=== PATIENT | male | born 1950 | race Caucasian/White ===

== ENCOUNTER 2017-02-12 11:37 | Emergency (ER) | payer OTHER ==
[~2017-02-12] VITALS: Ht 182.9 cm; Wt 121.9 kg
[~2017-02-12 11:37] MED LIST: ADVAIR 250-501 EACH; ADVAIR 250/501 DISK IH; ADVAIR 500/501 DISK IH; ALEVE220 M1 PO; ARTHROTEC 501 TABLET PO; ASPIRIN325 MG PO; ASPIRIN81 M1 PO; Ascorbic Acid,Ester- PO; BYSTOLIC5 MG PO; COZAAR25 MG PO; COZAAR50 MG PO; Cozaar PO; DIGOXIN250 MCG PO; DIOVAN HCT 11 TABLET PO; DIOVAN HCT 1601 EACH PO; DIOVAN160 MG PO; DOCUSATE SODIU100 MG PO; DUONEB 2.5-0.5 M3 ML IH; ECOTRIN325 MG PO; ECPIRIN325 M1 PO; ENDOCET 5-3251 EACH PO; Ecotrin PO; FERROUS SULFAT325 MG PO; FUROSEMIDE40 MG PO; HYDRODIURIL,O12.5 M2 PO; LASIX40 MG PO; LEVAQUIN500 MG PO; LEVOFLOXACIN750 MG PO; LEXAPRO10 MG PO; LIORESAL10 MG PO; LOPRESSOR100 M1 PO; LOPRESSOR25 MG PO; LOPRESSOR50 MG PO; LYRICA100 MG PO; LYRICA200 MG PO; LYRICA50 MG PO; Lasix PO; Lioresal PO; Lopressor PO; MIRALAX17 GM PO; MOTRIN600 M1 PO; MOTRIN800 MG PO; MYSOLINE50 MG PO; Miralax, Glycolax PO; Mysoline PO; NEXIUM20 MG PO; NORVASC5 MG PO; OMEPRAZOLE40 M1 PO; PANTOPRAZOLE SO40 MG PO; PERCOCET 10/1 TABLET PO; PERCOCET 7.51 TABLET PO; PLAVIX75 MG PO; PRADAXA150 MG PO; PRAVACHOL80 MG PO; PREDNISONE10 MG PO; PREDNISONE5 MG PO; PROMETHAZI6.25 MG/5 PO; PROTONIX40 MG PO; PROVENTIL,2.5 MG/3 M IH; Plavix PO; Pravachol PO; REQUIP0.5 MG PO; Requip PO; SPIRIVA1 INHALATI; SYMBICORT60 INHALAT IH; TRAMADOL HCL50 MG PO; ULTRAM50 MG PO; VITAMIN C1000 MG PO; VITAMIN D22000 UNIT PO; ZITHROMAX250 MG PO; [UNRECOGNIZED DRUG - REMARK]
[2017-02-12 11:57] LABS: POINT-OF-CARE METER ID UU13113778
[2017-02-12 12:07] LABS: HEMATOCRIT 44.7 % (38.0-50.0); MCHC 33.8 G/DL (30.0-36.0); MCV 79.8 FL (86-99); MEAN PLAT.VOLUME 10.6 uM^3 (9.0-12.4); PLATELET COUNT 255 K/uL (156-360); RBC DIS.WIDTH-CV 14.5 % (11.8-14.6); RBC DIS.WIDTH-SD 41.7 % (39-53); WHITE BLOOD COUNT 9.2 K/uL (4.1-10.2)
[2017-02-12 12:35] LABS: CHLORIDE 95 mEq/L (99-109); POTASSIUM 4.2 mEq/L (3.7-5.4); SODIUM 134 mEq/L (136-147)
[2017-02-12 12:38] LABS: ANION GAP 12 MEQ/L (2-14)
[2017-02-12 12:39] LABS: TOTAL BILIRUBIN 0.8 mg/dL (0.0-1.0)
[2017-02-12 12:41] LABS: GFR ESTIMATE (CALCULATED) 59 mL/min/
[2017-02-12 12:54] LABS: GLUCOSE 469 mg/dL (70-99)
[2017-02-12 12:57] LABS: ALKALINE PHOSPHATASE 137 IU/L (3-129)
[2017-02-12 12:59] LABS: UREA NITROGEN (BUN) 17 mg/dL (9-23)
[2017-02-12 13:23] LABS: ADD MIUA? YES; BILIRUBIN NEGATIVE; BLOOD SMALL; COLOR YELLOW ((YELLOW)); GLUCOSE (STRIP) >=500; KETONES 5; LEUKOCYTES NEGATIVE; NITRITE NEGATIVE; PROTEIN (STRIP) 30; SPECIFIC GRAVITY 1.027 (1.000-1.030); UROBILINOGEN 0.2 MG/DL (0.2-1.0)
[2017-02-12 13:29] LABS: BACTERIA RARE /HPF; CALCIUM OXALATE CRYSTALS 1+ /HPF; EPITHELIAL CELLS RARE /HPF; GRANULAR CASTS TNTC /LPF; HYALINE CASTS 30-40 /LPF; MUCUS 1+ /LPF; RED BLOOD CELLS 0-5 /HPF (0-5); UCUL ADDED? YES
[2017-02-12 13:43] LABS: Estimated Average Glucose 260 mg/dL (70-123)
[2017-02-12 13:48] LABS: HEMOGLOBIN A1c (GLYCOHEMOGLOB) 10.7 % HGB (Below 5.7)
[2017-02-12 15:12] LABS: POINT-OF-CARE METER ID UU13113800
[2017-02-12 15:54] LABS: POINT-OF-CARE METER ID UU13113800
[2017-02-12] MEDS ORDERED: GLUCOPHAGE1000 MG PO (16:35)
[2017-02-12] MEDS ORDERED: CIPRO500 MG PO (16:35)
[2017-02-12 16:40] VITALS: BP 126/86
== END 2017-02-12 17:29 | disposition home or self-care (01) ==
LOC: EME 11:37
PROVIDERS: Nurse Practitioner Family; Physician Assistant
DX: E11.65 Type 2 diabetes mellitus with hyperglycemia (principal); N39.0 Urinary tract infection, site not specified; G89.29 Other chronic pain; I10 Essential (primary) hypertension; J44.9 Chronic obstructive pulmonary disease, unspecified; Z95.1 Presence of aortocoronary bypass graft; Z79.82 Long term (current) use of aspirin; Z79.52 Long term (current) use of systemic steroids; Z87.891 Personal history of nicotine dependence
CPT/HCPCS: 80053; 81003; 82010; 82948; 83036; 85027; 87086; 99281; 99284; J7030

== ENCOUNTER 2017-06-07 00:28 | Inpatient (IN) | payer OTHER ==
[~2017-06-07] VITALS: Ht 182.9 cm; Wt 121.3 kg
[~2017-06-07 00:28] MED LIST changes: +CIPRO500 MG PO; +GLUCOPHAGE1000 MG PO
[2017-06-07 01:07] LABS: HEMATOCRIT 39.4 % (38.0-50.0); MCV 84.9 FL (86-99); MEAN PLAT.VOLUME 9.9 uM^3 (9.0-12.4); PLATELET COUNT 210 K/uL (156-360); RBC DIS.WIDTH-CV 14.2 % (11.8-14.6); RBC DIS.WIDTH-SD 44.1 % (39-53); RED BLOOD COUNT 4.64 M/uL (4.00-5.50)
[2017-06-07 01:17] LABS: CHLORIDE 108 mEq/L (99-109); SODIUM 144 mEq/L (136-147)
[2017-06-07 01:18] LABS: GLUCOSE 117 mg/dL (70-99)
[2017-06-07 01:20] LABS: ANION GAP 10 MEQ/L (2-14)
[2017-06-07 01:22] LABS: GFR ESTIMATE (CALCULATED) 28 mL/min/ (58.99-99999)
[2017-06-07 01:23] LABS: UREA NITROGEN (BUN) 38 mg/dL (9-23)
[2017-06-07 01:28] LABS: TROP-I INTERPRETATION NEGATIVE; TROPONIN-I < 0.01 ng/mL (0.0-0.30)
[2017-06-07 02:47] LABS: ADD MIUA? YES; BILIRUBIN NEGATIVE; BLOOD LARGE; COLOR YELLOW ((YELLOW)); GLUCOSE (STRIP) >=500; KETONES NEGATIVE; LEUKOCYTES NEGATIVE; NITRITE NEGATIVE; PROTEIN (STRIP) 100; SPECIFIC GRAVITY 1.014 (1.000-1.030); UROBILINOGEN 0.2 MG/DL (0.2-1.0)
[2017-06-07 03:17] LABS: RED BLOOD CELLS TNTC /HPF (0-5)
[2017-06-07 03:18] LABS: BACTERIA 1+ /HPF; EPITHELIAL CELLS RARE /HPF; MUCUS NONE SEEN /LPF; UCUL ADDED? YES
[2017-06-07] MEDS ORDERED: FARXIGA10 MG PO (08:40)
[2017-06-07] MEDS ORDERED: MORPHINE SULFAT15 M1 PO (08:40)
[2017-06-07] MEDS ORDERED: ATENOLOL25 MG PO (08:40)
[2017-06-07] MEDS ORDERED: DUONEB 2.5-0.5 M3 ML AEROSOL (08:46)
[2017-06-07 16:03] VITALS: BP 153/68
[2017-06-07 16:12] LABS: TROP-I INTERPRETATION NEGATIVE; TROPONIN-I < 0.01 ng/mL (0.0-0.30)
[2017-06-07 19:13] VITALS: BP 161/72
[2017-06-07 21:50] LABS: POINT-OF-CARE METER ID UU13113698
[2017-06-07 21:58] VITALS: BP 130/61
[2017-06-07 23:49] VITALS: BP 146/61
[2017-06-08 00:02] LABS: TROP-I INTERPRETATION NEGATIVE; TROPONIN-I < 0.01 ng/mL (0.0-0.30)
[2017-06-08 04:30] VITALS: BP 135/63
[2017-06-08 05:28] LABS: UR CREATININE CONCENTRATION 85.9 MG/DL
[2017-06-08 06:05] LABS: C3 COMPLEMENT 137 MG/DL (58-170); C4 COMPLEMENT 31 MG/DL (10-40)
[2017-06-08 06:06] LABS: ANION GAP 10 MEQ/L (2-14); CHLORIDE 105 MEQ/L (99-109); GFR ESTIMATE (CALCULATED) 30 mL/min/ (58.99-99999); GLUCOSE 98 mg/dL (70-99); POTASSIUM 3.8 MEQ/L (3.7-5.4); SAMPLE HEMOLYSIS CHECK 0; SAMPLE ICTERIC CHECK 0; SAMPLE LIPEMIA CHECK 0; SODIUM 141 MEQ/L (136-147); UREA NITROGEN (BUN) 37 mg/dL (9-23)
[2017-06-08 09:02] VITALS: BP 168/70
[2017-06-08 11:46] VITALS: BP 163/71
[2017-06-08 14:16] LABS: HBSG INDEX 0.18
[2017-06-08 14:18] LABS: ANTI-HEPATITIS A VIRUS (IGM) Nonreactive; HAV INDEX 0.18; HPCA INDEX 0.19
[2017-06-08 14:19] LABS: ANTI-HEPATITIS B CORE (IGM) Nonreactive; HBC IgM INDEX 0.07
[2017-06-08 16:51] VITALS: BP 167/78
[2017-06-08 19:41] VITALS: BP 156/70
[2017-06-08 23:30] VITALS: BP 176/77
[2017-06-09 04:20] VITALS: BP 144/67
[2017-06-09 05:07] LABS: BASOPHIL COUNT 0.1 K/uL (0-0.1); EOSINOPHIL (%) 2.5 % (0-5); EOSINOPHIL COUNT 0.2 K/uL (0-0.3); HEMATOCRIT 34.5 % (38.0-50.0); IMMATURE GRANULOCYTE (%) 0.3 % (0.0-0.7); INSTRUMENT ABS NEUTROPHIL CT 5.3 K/uL; LYMPHOCYTE COUNT 1.5 K/uL (1.0-2.8); MCH 27.4 PG (29.0-34.0); MCHC 32.8 G/DL (30.0-36.0); MCV 83.7 FL (86-99); MEAN PLAT.VOLUME 10.3 uM^3 (9.0-12.4); MONOCYTE (%) 8.7 % (3-12); MONOCYTE COUNT 0.7 K/uL (0-0.8); NEUTROPHIL (%) 68.8 % (45-76); NEUTROPHIL COUNT 5.3 K/uL (1.8-6.4); PLATELET COUNT 195 K/uL (156-360); RBC DIS.WIDTH-CV 14.6 % (11.8-14.6); RBC DIS.WIDTH-SD 44.6 % (39-53); RED BLOOD COUNT 4.12 M/uL (4.00-5.50); WHITE BLOOD COUNT 7.7 K/uL (4.1-10.2)
[2017-06-09 05:15] LABS: CHLORIDE 106 mEq/L (99-109); SODIUM 141 mEq/L (136-147)
[2017-06-09 05:16] LABS: MAGNESIUM 2.1 mg/dL (1.3-2.7)
[2017-06-09 05:17] LABS: GLUCOSE 110 mg/dL (70-99)
[2017-06-09 05:18] LABS: ANION GAP 11 MEQ/L (2-14)
[2017-06-09 05:21] LABS: GFR ESTIMATE (CALCULATED) 26 mL/min/ (58.99-99999)
[2017-06-09 05:22] LABS: UREA NITROGEN (BUN) 38 mg/dL (9-23)
[2017-06-09 06:55] VITALS: BP 143/67
[2017-06-09 11:10] VITALS: BP 177/70
[2017-06-09 15:29] LABS: UR CREATININE CONCENTRATION 75.7 MG/DL
[2017-06-09 15:58] VITALS: BP 174/75
[2017-06-09 20:10] VITALS: BP 149/67
[2017-06-10 00:01] VITALS: BP 162/72
[2017-06-10 04:48] VITALS: BP 167/86
[2017-06-10 06:38] LABS: ANION GAP 11 MEQ/L (2-14); CHLORIDE 107 MEQ/L (99-109); GFR ESTIMATE (CALCULATED) 26 mL/min/ (58.99-99999); GLUCOSE 103 mg/dL (70-99); POTASSIUM 4.2 MEQ/L (3.7-5.4); SAMPLE HEMOLYSIS CHECK 0; SAMPLE ICTERIC CHECK 0; SAMPLE LIPEMIA CHECK 0; SODIUM 143 MEQ/L (136-147); UREA NITROGEN (BUN) 41 mg/dL (9-23)
[2017-06-10 07:50] VITALS: BP 153/70
[2017-06-10 10:14] LABS: CREATINE KINASE 41 IU/L (1-294)
[2017-06-10 11:43] VITALS: BP 179/82
[2017-06-10 13:02] LABS: TROP-I INTERPRETATION NEGATIVE; TROPONIN-I < 0.01 ng/mL (0.0-0.30)
[2017-06-10 13:04] LABS: Neutrophil Cytoplasmic Aby Negative (Negative)
[2017-06-10 17:15] LABS: POINT-OF-CARE METER ID UU14314088
[2017-06-10 17:19] VITALS: BP 151/71
[2017-06-10 19:33] VITALS: BP 146/65
[2017-06-10 21:09] LABS: POINT-OF-CARE METER ID UU13113781
[2017-06-11 00:23] VITALS: BP 141/67
[2017-06-11 04:56] VITALS: BP 146/68
[2017-06-11 06:22] LABS: POINT-OF-CARE METER ID UU13113725
[2017-06-11 07:58] VITALS: BP 144/65
[2017-06-11 08:41] LABS: EOSINOPHIL (%) 2.4 % (0-5); EOSINOPHIL COUNT 0.2 K/uL (0-0.3); HEMATOCRIT 35.7 % (38.0-50.0); IMMATURE GRANULOCYTE (%) 0.3 % (0.0-0.7); INSTRUMENT ABS NEUTROPHIL CT 4.7 K/uL; LYMPHOCYTE COUNT 1.2 K/uL (1.0-2.8); MCH 27.6 PG (29.0-34.0); MCHC 32.5 G/DL (30.0-36.0); MEAN PLAT.VOLUME 10.5 uM^3 (9.0-12.4); MONOCYTE (%) 9.1 % (3-12); MONOCYTE COUNT 0.6 K/uL (0-0.8); NEUTROPHIL (%) 70.6 % (45-76); NEUTROPHIL COUNT 4.7 K/uL (1.8-6.4); PLATELET COUNT 193 K/uL (156-360); RBC DIS.WIDTH-CV 14.9 % (11.8-14.6); RBC DIS.WIDTH-SD 45.9 % (39-53); WHITE BLOOD COUNT 6.7 K/uL (4.1-10.2)
[2017-06-11 08:49] LABS: INTER. NORMALIZED RATIO 1.2; PROTHROMBIN TIME 13.6 SEC (10.2-12.9)
[2017-06-11 08:51] LABS: PTT 32.9 SEC (25-37)
[2017-06-11 09:22] LABS: ANION GAP 9 MEQ/L (2-14); CHLORIDE 107 MEQ/L (99-109); GFR ESTIMATE (CALCULATED) 26 mL/min/ (58.99-99999); GLOBULINS 2.7 G/DL (2.3-3.5); GLUCOSE 103 mg/dL (70-99); POTASSIUM 4.5 MEQ/L (3.7-5.4); SAMPLE HEMOLYSIS CHECK 0; SAMPLE ICTERIC CHECK 0; SAMPLE LIPEMIA CHECK 0; SODIUM 142 MEQ/L (136-147); UREA NITROGEN (BUN) 39 mg/dL (9-23)
[2017-06-11 11:55] LABS: POINT-OF-CARE METER ID UU13113725
[2017-06-11 15:21] VITALS: BP 141/64
[2017-06-11 16:35] LABS: POINT-OF-CARE METER ID UU13113725
[2017-06-11 21:07] LABS: POINT-OF-CARE METER ID UU13113774
[2017-06-11 22:44] VITALS: BP 156/69
[2017-06-12 06:24] LABS: POINT-OF-CARE METER ID UU13113725
[2017-06-12 07:33] VITALS: BP 183/83
[2017-06-12 11:25] LABS: POINT-OF-CARE METER ID UU13113725
[2017-06-12 16:16] VITALS: BP 171/75
[2017-06-12 16:19] LABS: POINT-OF-CARE METER ID UU13113725
[2017-06-12 20:59] LABS: POINT-OF-CARE METER ID UU13113725
[2017-06-13 00:39] VITALS: BP 135/66
[2017-06-13 06:31] LABS: POINT-OF-CARE METER ID UU13113774
[2017-06-13 07:04] LABS: EOSINOPHIL (%) 0 % (0-5); HEMATOCRIT 34.3 % (38.0-50.0); IMMATURE GRANULOCYTE COUNT 0.1 K/uL; INSTRUMENT ABS NEUTROPHIL CT 8.3 K/uL; LYMPHOCYTE COUNT 0.7 K/uL (1.0-2.8); MCHC 33.2 G/DL (30.0-36.0); MCV 84.3 FL (86-99); MEAN PLAT.VOLUME 10.5 uM^3 (9.0-12.4); MONOCYTE (%) 5.5 % (3-12); MONOCYTE COUNT 0.5 K/uL (0-0.8); NEUTROPHIL (%) 86.2 % (45-76); NEUTROPHIL COUNT 8.3 K/uL (1.8-6.4); PLATELET COUNT 221 K/uL (156-360); RBC DIS.WIDTH-SD 46.2 % (39-53); RED BLOOD COUNT 4.07 M/uL (4.00-5.50); WHITE BLOOD COUNT 9.6 K/uL (4.1-10.2)
[2017-06-13 07:10] LABS: ANION GAP 11 MEQ/L (2-14); CHLORIDE 109 MEQ/L (99-109); GFR ESTIMATE (CALCULATED) 22 mL/min/ (58.99-99999); POTASSIUM 4.5 MEQ/L (3.7-5.4); SAMPLE HEMOLYSIS CHECK 0; SAMPLE ICTERIC CHECK 0; SAMPLE LIPEMIA CHECK 0; SODIUM 142 MEQ/L (136-147)
[2017-06-13 07:14] LABS: GLUCOSE 164 mg/dL (70-99); UREA NITROGEN (BUN) 71 mg/dL (9-23)
[2017-06-13 07:43] VITALS: BP 151/70
[2017-06-13 12:12] LABS: POINT-OF-CARE METER ID UU13113774
[2017-06-13 16:04] LABS: POINT-OF-CARE METER ID UU13113725
[2017-06-13 16:37] VITALS: BP 166/76
[2017-06-13 21:33] LABS: POINT-OF-CARE METER ID UU13113725
[2017-06-14] VITALS: BP 177/74
[2017-06-14 03:00] VITALS: BP 160/72
[2017-06-14 06:15] LABS: POINT-OF-CARE METER ID UU13113725
[2017-06-14 06:25] LABS: EOSINOPHIL (%) 0 % (0-5); IMMATURE GRANULOCYTE (%) 1.1 % (0.0-0.7); IMMATURE GRANULOCYTE COUNT 0.1 K/uL; INSTRUMENT ABS NEUTROPHIL CT 7.4 K/uL; LYMPHOCYTE COUNT 0.7 K/uL (1.0-2.8); MCH 26.9 PG (29.0-34.0); MCHC 31.7 G/DL (30.0-36.0); MCV 84.9 FL (86-99); MEAN PLAT.VOLUME 10.6 uM^3 (9.0-12.4); MONOCYTE (%) 6.4 % (3-12); MONOCYTE COUNT 0.6 K/uL (0-0.8); NEUTROPHIL (%) 84.3 % (45-76); NEUTROPHIL COUNT 7.4 K/uL (1.8-6.4); PLATELET COUNT 215 K/uL (156-360); RBC DIS.WIDTH-CV 14.9 % (11.8-14.6); RBC DIS.WIDTH-SD 46.2 % (39-53); RED BLOOD COUNT 4.24 M/uL (4.00-5.50); WHITE BLOOD COUNT 8.8 K/uL (4.1-10.2)
[2017-06-14 07:41] LABS: ANION GAP 11 MEQ/L (2-14); CHLORIDE 109 MEQ/L (99-109); GFR ESTIMATE (CALCULATED) 21 mL/min/ (58.99-99999); GLUCOSE 150 mg/dL (70-99); POTASSIUM 4.8 MEQ/L (3.7-5.4); SAMPLE HEMOLYSIS CHECK 0; SAMPLE ICTERIC CHECK 0; SAMPLE LIPEMIA CHECK 0; SODIUM 141 MEQ/L (136-147); UREA NITROGEN (BUN) 85 mg/dL (9-23)
[2017-06-14 08:05] VITALS: BP 164/73
[2017-06-14 11:19] LABS: ALBUMIN 3.07 G/DL (3.6-4.9); ALBUMIN PERCENT 50.4 % (49.3-67.1); ALPHA-1 PERCENT 6.6 % (2.1-5.5); ALPHA-2 GLOBULIN 0.71 G/DL (0.45-0.85); ALPHA-2 PERCENT 11.7 % (6.2-11.6); BETA PERCENT 14.4 % (8.9-15.8); GAMMA PERCENT 16.9 % (8.6-18.6); INTERPRETATION: Normal study.; SERUM GEL NO. capi-28
[2017-06-14 11:36] LABS: POINT-OF-CARE METER ID UU13113774
[2017-06-14 15:47] VITALS: BP 151/74
[2017-06-14 16:34] LABS: POINT-OF-CARE METER ID UU13113774
[2017-06-14 21:18] LABS: POINT-OF-CARE METER ID UU13113725
[2017-06-14 23:09] VITALS: BP 120/50
[2017-06-15 00:02] VITALS: BP 181/84
[2017-06-15 05:54] LABS: POINT-OF-CARE METER ID UU13113725
[2017-06-15 07:05] LABS: EOSINOPHIL (%) 0.1 % (0-5); HEMATOCRIT 37.6 % (38.0-50.0); IMMATURE GRANULOCYTE COUNT 0.1 K/uL; LYMPHOCYTE COUNT 1.3 K/uL (1.0-2.8); MCH 26.9 PG (29.0-34.0); MCHC 31.6 G/DL (30.0-36.0); MCV 85.1 FL (86-99); MEAN PLAT.VOLUME 10.6 uM^3 (9.0-12.4); MONOCYTE (%) 12.1 % (3-12); NEUTROPHIL (%) 71.1 % (45-76); PLATELET COUNT 199 K/uL (156-360); RBC DIS.WIDTH-SD 46.5 % (39-53); RED BLOOD COUNT 4.42 M/uL (4.00-5.50); WHITE BLOOD COUNT 8.4 K/uL (4.1-10.2)
[2017-06-15 07:12] LABS: ANION GAP 10 MEQ/L (2-14); CHLORIDE 110 MEQ/L (99-109); GFR ESTIMATE (CALCULATED) 24 mL/min/ (58.99-99999); POTASSIUM 4.4 MEQ/L (3.7-5.4); SAMPLE HEMOLYSIS CHECK 0; SAMPLE ICTERIC CHECK 0; SAMPLE LIPEMIA CHECK 0; SODIUM 143 MEQ/L (136-147); UREA NITROGEN (BUN) 83 mg/dL (9-23)
[2017-06-15 07:13] LABS: GLUCOSE 111 mg/dL (70-99)
[2017-06-15 08:22] VITALS: BP 141/65
[2017-06-15] MEDS ORDERED: AMOX TR-K CLV1 EAC3 PO (09:06)
[2017-06-15] MEDS ORDERED: ASPIR-LOW81 MG PO (09:08)
[2017-06-15] MEDS ORDERED: ACETAMINOPHEN-1 EAC1 PO (09:11)
[2017-06-15] MEDS ORDERED: NOVOLOG PE100 UNITS/ SC (09:11)
[2017-06-15 11:18] LABS: POINT-OF-CARE METER ID UU13113725
== END 2017-06-15 12:22 | disposition home or self-care (01) | DRG 682 ==
LOC: EME 00:28 → 5EAST 03:45 → 4EAST 03:45 → EDOF 03:45 → ENRESERV 04:04 → 4EAST 15:25 → ENRESERV 06-10 22:13 → 5EAST 06-10 22:43 → ENPENDDIS 06-15 → 5EAST 06-15 12:22
PROVIDERS: Emergency Medicine; Family Medicine; Internal Medicine Cardiovascular Disease; Internal Medicine Nephrology
DX: N17.9 Acute kidney failure, unspecified (principal); J44.1 Chronic obstructive pulmonary disease with (acute) exacerbation; I48.91 Unspecified atrial fibrillation; J90 Pleural effusion, not elsewhere classified; N40.0 Benign prostatic hyperplasia without lower urinary tract symptoms; G25.81 Restless legs syndrome; R91.8 Other nonspecific abnormal finding of lung field; J44.0 Chronic obstructive pulmonary disease with (acute) lower respiratory infection; R73.03 Prediabetes; J18.9 Pneumonia, unspecified organism; I25.10 Atherosclerotic heart disease of native coronary artery without angina pectoris; F41.9 Anxiety disorder, unspecified; M06.9 Rheumatoid arthritis, unspecified; R31.0 Gross hematuria; E66.9 Obesity, unspecified; I10 Essential (primary) hypertension; I25.810 Atherosclerosis of coronary artery bypass graft(s) without angina pectoris; E78.5 Hyperlipidemia, unspecified; G89.4 Chronic pain syndrome; M54.9 Dorsalgia, unspecified; I00 Rheumatic fever without heart involvement; E11.42 Type 2 diabetes mellitus with diabetic polyneuropathy; Z87.891 Personal history of nicotine dependence; Z82.49 Family history of ischemic heart disease and other diseases of the circulatory system; Z91.19 Patient's noncompliance with other medical treatment and regimen; Z91.048 Other nonmedicinal substance allergy status; Z79.4 Long term (current) use of insulin; Z79.82 Long term (current) use of aspirin; Z95.1 Presence of aortocoronary bypass graft; Z68.35 Body mass index [BMI] 35.0-35.9, adult
CPT/HCPCS: 70450; 71020; 71250; 74176; 76770; 77012; 80048; 80069; 80074; 81003; 81050; 82043; 82550; 82570; 82948; 83520 90; 83735; 83883 90; 84156; 84165; 84300; 84484; 84550; 85025; 85027; 85610; 85651; 85730; 86021 90; 86038; 86160; 87086; 88305; 88313 90; 88346 90; 88348 90; 89190; 90686; 93005; 93306; 94640; 94640 76; 94799; 99202; 99281; 99284; J0696; J1644; J1650; J1815; J2930; J7030; J7040; J7512

== ENCOUNTER 2017-06-18 13:15 | Inpatient (IN) | payer OTHER ==
[~2017-06-18] VITALS: Ht 185.4 cm; Wt 118.1 kg
[~2017-06-18 13:15] MED LIST changes: +ACETAMINOPHEN-1 EAC1 PO; +AMOX TR-K CLV1 EAC3 PO; +ASPIR-LOW81 MG PO; +ATENOLOL25 MG PO; +DUONEB 2.5-0.5 M3 ML AEROSOL; +FARXIGA10 MG PO; +MORPHINE SULFAT15 M1 PO; +NOVOLOG PE100 UNITS/ SC
[2017-06-18 14:37] LABS: HEMATOCRIT 43.3 % (38.0-50.0); MCH 27.5 PG (29.0-34.0); MCHC 32.6 G/DL (30.0-36.0); MCV 84.4 FL (86-99); MEAN PLAT.VOLUME 10.1 uM^3 (9.0-12.4); RBC DIS.WIDTH-CV 14.7 % (11.8-14.6); RED BLOOD COUNT 5.13 M/uL (4.00-5.50); WHITE BLOOD COUNT 17.2 K/uL (4.1-10.2)
[2017-06-18 14:38] LABS: PLATELET COUNT 280 K/uL (156-360)
[2017-06-18 15:05] LABS: ANION GAP 10 MEQ/L (2-14); CHLORIDE 112 MEQ/L (99-109); SAMPLE HEMOLYSIS CHECK 0; SAMPLE ICTERIC CHECK 0; SAMPLE LIPEMIA CHECK 0; SODIUM 144 MEQ/L (136-147)
[2017-06-18 15:12] LABS: GFR ESTIMATE (CALCULATED) 29 mL/min/ (58.99-99999); GLUCOSE 101 mg/dL (70-99); UREA NITROGEN (BUN) 62 mg/dL (9-23)
[2017-06-18] MEDS ORDERED: NOVOLOG PE100 UNITS/ SC (16:30)
[2017-06-18 17:28] LABS: ADD MIUA? YES; BILIRUBIN NEGATIVE; BLOOD LARGE; COLOR YELLOW ((YELLOW)); GLUCOSE (STRIP) NEGATIVE; KETONES NEGATIVE; LEUKOCYTES NEGATIVE; NITRITE NEGATIVE; PROTEIN (STRIP) 100; SPECIFIC GRAVITY 1.016 (1.000-1.030); UROBILINOGEN 0.2 MG/DL (0.2-1.0)
[2017-06-18 17:44] LABS: CASTS NONE SEEN /LPF; EPITHELIAL CELLS NONE SEEN /HPF; MUCUS NONE SEEN /LPF
[2017-06-18 17:45] LABS: BACTERIA RARE /HPF; RED BLOOD CELLS TNTC /HPF (0-5); UCUL ADDED? YES
[2017-06-18 20:35] VITALS: BP 140/62
[2017-06-18 22:21] LABS: POINT-OF-CARE METER ID UU14302474; POINT-OF-CARE USER ID 608261329
[2017-06-18 22:40] VITALS: BP 153/65
[2017-06-19 05:47] LABS: POINT-OF-CARE METER ID UU14302474
[2017-06-19 07:37] VITALS: BP 188/80
[2017-06-19 10:05] VITALS: BP 158/70
[2017-06-19 12:01] LABS: POINT-OF-CARE METER ID UU14302474
[2017-06-19 12:34] LABS: ANION GAP 7 MEQ/L (2-14); CHLORIDE 112 MEQ/L (99-109); GFR ESTIMATE (CALCULATED) 29 mL/min/ (58.99-99999); GLUCOSE 100 mg/dL (70-99); SAMPLE HEMOLYSIS CHECK 0; SAMPLE ICTERIC CHECK 0; SAMPLE LIPEMIA CHECK 0; SODIUM 144 MEQ/L (136-147); UREA NITROGEN (BUN) 53 mg/dL (9-23)
[2017-06-20 07:10] LABS: Estimated Average Glucose 120 mg/dL (70-123)
[2017-06-20 07:24] LABS: HEMOGLOBIN A1c (GLYCOHEMOGLOB) 5.8 % HGB (Below 5.7)
== END 2017-06-19 15:41 | disposition home or self-care (01) | DRG 682 ==
LOC: EME 13:15 → EDOF 18:17 → ENRESERV 18:22 → 5EAST 20:27
PROVIDERS: Family Medicine
DX: N17.9 Acute kidney failure, unspecified (principal); J86.9 Pyothorax without fistula; I12.9 Hypertensive chronic kidney disease with stage 1 through stage 4 chronic kidney disease, or unspecified chronic kidney disease; N18.3 Chronic kidney disease, stage 3 (moderate); J44.9 Chronic obstructive pulmonary disease, unspecified; E66.9 Obesity, unspecified; Z68.34 Body mass index [BMI] 34.0-34.9, adult; M06.9 Rheumatoid arthritis, unspecified; E86.0 Dehydration; G89.29 Other chronic pain; I25.10 Atherosclerotic heart disease of native coronary artery without angina pectoris; Z95.1 Presence of aortocoronary bypass graft; Z87.891 Personal history of nicotine dependence; E78.5 Hyperlipidemia, unspecified; E11.22 Type 2 diabetes mellitus with diabetic chronic kidney disease; E11.42 Type 2 diabetes mellitus with diabetic polyneuropathy; J98.11 Atelectasis
CPT/HCPCS: 36415; 80048; 81003; 82948; 83036; 85027; 86021 90; 86060 90; 87086; 87493; 94640; 94640 76; 99202; 99281; 99284; J1815; J7030

== ENCOUNTER 2017-07-30 04:49 | Inpatient (IN) | payer OTHER ==
[~2017-07-30] VITALS: Ht 182.9 cm; Wt 100.0 kg
[2017-07-30 05:56] LABS: BASOPHIL (%) 0.3 % (0-1); EOSINOPHIL (%) 0.3 % (0-5); HEMATOCRIT 22.5 % (38.0-50.0); HEMOGLOBIN 7.7 G/DL (12.5-16.6); IMMATURE GRANULOCYTE (%) 2.8 % (0.0-0.7); LYMPHOCYTE COUNT 0.4 K/uL (1.0-2.8); MCH 28.2 PG (29.0-34.0); MCHC 34.2 G/DL (30.0-36.0); MCV 82.4 FL (86-99); MONOCYTE (%) 6.8 % (3-12); MONOCYTE COUNT 0.2 K/uL (0-0.8); NEUTROPHIL (%) 78.8 % (45-76); NEUTROPHIL COUNT 2.8 K/uL (1.8-6.4); NRBC (%) 1.1 /100 WBC (0-0); PLATELET COUNT 104 K/uL (156-360); RBC DIS.WIDTH-CV 17.7 % (11.8-14.6); RBC DIS.WIDTH-SD 43.2 % (39-53); WHITE BLOOD COUNT 3.5 K/uL (4.1-10.2)
[2017-07-30 05:57] LABS: RED BLOOD COUNT 2.73 M/uL (4.00-5.50)
[2017-07-30 06:09] LABS: ALBUMIN 3.2 g/dL (3.2-4.8); CHLORIDE 108 mEq/L (99-109); POTASSIUM 3.4 mEq/L (3.7-5.4); SODIUM 144 mEq/L (136-147)
[2017-07-30 06:11] LABS: GLUCOSE 123 mg/dL (70-99); TOTAL PROTEIN 4.6 g/dL (6.4-8.3)
[2017-07-30 06:13] LABS: TOTAL BILIRUBIN 1.3 mg/dL (0.0-1.0)
[2017-07-30 06:15] LABS: ALKALINE PHOSPHATASE 67 IU/L (3-129); CREATININE 2.6 mg/dL (0.6-1.3); GFR ESTIMATE (CALCULATED) 26 mL/min/ (58.99-99999)
[2017-07-30 06:16] LABS: UREA NITROGEN (BUN) 58 mg/dL (9-23)
[2017-07-30 06:17] LABS: AST (GOT) 17 IU/L (2-34)
[2017-07-30 06:18] LABS: ALT (GPT) 35 IU/L (3-49)
[2017-07-30 06:19] LABS: TROP-I INTERPRETATION NEGATIVE; TROPONIN-I 0.17 ng/mL (0.0-0.30)
[2017-07-30] MEDS ORDERED: PREDNISONE10 MG PO (08:18)
[2017-07-30] MEDS ORDERED: PREDNISONE50 MG PO (08:18)
[2017-07-30] MEDS ORDERED: PERCOCET 10/1 TABLET PO (08:20)
[2017-07-30] MEDS ORDERED: CYCLOPHOSPHAMID50 M2 PO (08:20)
[2017-07-30] MEDS ORDERED: CATAPRES0.1 MG PO (08:21)
[2017-07-30] MEDS ORDERED: OMEPRAZOLE40 M1 PO (08:31)
[2017-07-30] MEDS ORDERED: LASIX40 MG PO (08:32)
[2017-07-30 12:35] LABS: APPEARANCE SL.HAZY ((CLEAR)); BILIRUBIN NEGATIVE; BLOOD LARGE; COLOR YELLOW ((YELLOW)); GLUCOSE (STRIP) NEGATIVE; KETONES NEGATIVE; LEUKOCYTES NEGATIVE; NITRITE NEGATIVE; PROTEIN (STRIP) 30; SPECIFIC GRAVITY 1.014 (1.000-1.030); UROBILINOGEN 0.2 MG/DL (0.2-1.0)
[2017-07-30 12:40] LABS: BACTERIA RARE /HPF; EPITHELIAL CELLS RARE /HPF; HYALINE CASTS 0-5 /LPF; MUCUS TRACE /LPF; RED BLOOD CELLS TNTC /HPF (0-5); WHITE BLOOD CELLS 0-5 /HPF (0-5)
[2017-07-30 19:11] VITALS: BP 131/74
[2017-07-30 21:54] LABS: TROP-I INTERPRETATION NEGATIVE; TROPONIN-I 0.12 ng/mL (0.0-0.30)
[2017-07-30 22:45] VITALS: BP 122/71
[2017-07-31 04:34] VITALS: BP 123/59
[2017-07-31 05:35] LABS: TROP-I INTERPRETATION NEGATIVE; TROPONIN-I 0.12 ng/mL (0.0-0.30)
[2017-07-31 06:55] VITALS: BP 132/58
[2017-07-31 06:58] LABS: HEMATOCRIT 30.1 % (38.0-50.0); HEMOGLOBIN 10.1 G/DL (12.5-16.6); MCH 28.1 PG (29.0-34.0); MCHC 33.6 G/DL (30.0-36.0); MCV 83.8 FL (86-99); NRBC (%) 0.9 /100 WBC (0-0); PLATELET COUNT 113 K/uL (156-360); RBC DIS.WIDTH-CV 17.7 % (11.8-14.6); RED BLOOD COUNT 3.59 M/uL (4.00-5.50); WHITE BLOOD COUNT 4.3 K/uL (4.1-10.2)
[2017-07-31 07:17] LABS: CHLORIDE 108 MEQ/L (99-109); CREATININE 2.5 MG/DL (0.6-1.3); GFR ESTIMATE (CALCULATED) 28 mL/min/ (58.99-99999); GLUCOSE 140 mg/dL (70-99); SODIUM 147 MEQ/L (136-147); UREA NITROGEN (BUN) 50 mg/dL (9-23)
[2017-07-31 07:21] LABS: POTASSIUM 4.3 MEQ/L (3.7-5.4)
[2017-07-31 11:10] VITALS: BP 156/69
[2017-07-31 13:23] LABS: TROP-I INTERPRETATION NEGATIVE; TROPONIN-I 0.09 ng/mL (0.0-0.30)
[2017-07-31 16:30] VITALS: BP 138/66
[2017-07-31 19:47] VITALS: BP 119/57
[2017-07-31 23:00] VITALS: BP 133/57
[2017-08-01 03:48] VITALS: BP 119/64
[2017-08-01 07:05] VITALS: BP 134/58
[2017-08-01 11:00] VITALS: BP 131/64
[2017-08-01 15:00] VITALS: BP 137/61
[2017-08-01 19:08] VITALS: BP 143/64
[2017-08-01 19:50] LABS: UR CREATININE CONCENTRATION 59.8 MG/DL
[2017-08-01 23:36] VITALS: BP 116/57
[2017-08-02 05:08] LABS: UR CREATININE CONCENTRATION 77.2 MG/DL
[2017-08-02 07:06] LABS: BASOPHIL (%) 0.2 % (0-1); EOSINOPHIL (%) 0 % (0-5); HEMATOCRIT 29.1 % (38.0-50.0); HEMOGLOBIN 9.7 G/DL (12.5-16.6); LYMPHOCYTE (%) 16.9 % (15-42); LYMPHOCYTE COUNT 0.8 K/uL (1.0-2.8); MCH 28.8 PG (29.0-34.0); MCHC 33.3 G/DL (30.0-36.0); MCV 86.4 FL (86-99); MONOCYTE (%) 5.3 % (3-12); MONOCYTE COUNT 0.3 K/uL (0-0.8); NEUTROPHIL (%) 75.6 % (45-76); NEUTROPHIL COUNT 3.7 K/uL (1.8-6.4); NRBC (%) 1.4 /100 WBC (0-0); PLATELET COUNT 137 K/uL (156-360); RBC DIS.WIDTH-CV 19.1 % (11.8-14.6); RBC DIS.WIDTH-SD 49.9 % (39-53); RED BLOOD COUNT 3.37 M/uL (4.00-5.50); WHITE BLOOD COUNT 4.9 K/uL (4.1-10.2)
[2017-08-02 07:18] VITALS: BP 166/55
[2017-08-02 07:19] LABS: CHLORIDE 103 MEQ/L (99-109); CREATININE 2.7 MG/DL (0.6-1.3); GFR ESTIMATE (CALCULATED) 25 mL/min/ (58.99-99999); GLUCOSE 143 mg/dL (70-99); MAGNESIUM 1.7 mg/dl (1.3-2.7); PHOSPHORUS 3.7 mg/dL (2.5-4.9); POTASSIUM 4.4 MEQ/L (3.7-5.4); SODIUM 142 MEQ/L (136-147); UREA NITROGEN (BUN) 55 mg/dL (9-23)
[2017-08-02 15:23] VITALS: BP 104/56
[2017-08-02 22:57] VITALS: BP 128/74
[2017-08-03 06:44] LABS: BASOPHIL (%) 0.2 % (0-1); EOSINOPHIL (%) 0.2 % (0-5); HEMATOCRIT 28.3 % (38.0-50.0); HEMOGLOBIN 9.6 G/DL (12.5-16.6); IMMATURE GRANULOCYTE (%) 2.3 % (0.0-0.7); LYMPHOCYTE (%) 14.4 % (15-42); LYMPHOCYTE COUNT 0.6 K/uL (1.0-2.8); MCH 28.7 PG (29.0-34.0); MCHC 33.9 G/DL (30.0-36.0); MCV 84.5 FL (86-99); MONOCYTE (%) 7.1 % (3-12); MONOCYTE COUNT 0.3 K/uL (0-0.8); NEUTROPHIL (%) 75.8 % (45-76); NEUTROPHIL COUNT 3.3 K/uL (1.8-6.4); NRBC (%) 1.4 /100 WBC (0-0); PLATELET COUNT 123 K/uL (156-360); RBC DIS.WIDTH-CV 19.9 % (11.8-14.6); RBC DIS.WIDTH-SD 49.9 % (39-53); RED BLOOD COUNT 3.35 M/uL (4.00-5.50); WHITE BLOOD COUNT 4.4 K/uL (4.1-10.2)
[2017-08-03 07:09] LABS: CHLORIDE 104 MEQ/L (99-109); CREATININE 2.7 MG/DL (0.6-1.3); GFR ESTIMATE (CALCULATED) 25 mL/min/ (58.99-99999); GLUCOSE 125 mg/dL (70-99); POTASSIUM 4.1 MEQ/L (3.7-5.4); SODIUM 143 MEQ/L (136-147); UREA NITROGEN (BUN) 58 mg/dL (9-23)
[2017-08-03 07:53] VITALS: BP 98/59
[2017-08-03 16:14] VITALS: BP 107/51
[2017-08-03 20:30] VITALS: BP 130/65
[2017-08-04 00:29] VITALS: BP 128/66
[2017-08-04 06:45] LABS: HEMATOCRIT 26.3 % (38.0-50.0); MCH 28.8 PG (29.0-34.0); MCHC 34.2 G/DL (30.0-36.0); NRBC (%) 0.8 /100 WBC (0-0); PLATELET COUNT 119 K/uL (156-360); RBC DIS.WIDTH-CV 20.1 % (11.8-14.6); RBC DIS.WIDTH-SD 51.2 % (39-53); RED BLOOD COUNT 3.13 M/uL (4.00-5.50); WHITE BLOOD COUNT 3.8 K/uL (4.1-10.2)
[2017-08-04 06:56] LABS: BASOPHIL (%) 0.3 % (0-1); EOSINOPHIL (%) 0 % (0-5); IMMATURE GRANULOCYTE (%) 1.8 % (0.0-0.7); LYMPHOCYTE (%) 16.8 % (15-42); LYMPHOCYTE COUNT 0.6 K/uL (1.0-2.8); MONOCYTE (%) 7.9 % (3-12); MONOCYTE COUNT 0.3 K/uL (0-0.8); NEUTROPHIL (%) 73.2 % (45-76); NEUTROPHIL COUNT 2.8 K/uL (1.8-6.4)
[2017-08-04 07:10] LABS: CHLORIDE 105 MEQ/L (99-109); CREATININE 2.6 MG/DL (0.6-1.3); GFR ESTIMATE (CALCULATED) 26 mL/min/ (58.99-99999); GLUCOSE 117 mg/dL (70-99); POTASSIUM 3.7 MEQ/L (3.7-5.4); SODIUM 144 MEQ/L (136-147); UREA NITROGEN (BUN) 58 mg/dL (9-23)
[2017-08-04 07:23] VITALS: BP 105/56
[2017-08-04 16:45] VITALS: BP 114/63
[2017-08-04 23:37] VITALS: BP 135/66
[2017-08-05 06:25] LABS: BASOPHIL (%) 0.2 % (0-1); EOSINOPHIL (%) 0 % (0-5); HEMATOCRIT 28.6 % (38.0-50.0); HEMOGLOBIN 9.7 G/DL (12.5-16.6); IMMATURE GRANULOCYTE (%) 1.6 % (0.0-0.7); LYMPHOCYTE (%) 15.5 % (15-42); LYMPHOCYTE COUNT 0.7 K/uL (1.0-2.8); MCH 28.8 PG (29.0-34.0); MCHC 33.9 G/DL (30.0-36.0); MCV 84.9 FL (86-99); MONOCYTE (%) 7.4 % (3-12); MONOCYTE COUNT 0.3 K/uL (0-0.8); NEUTROPHIL (%) 75.3 % (45-76); NEUTROPHIL COUNT 3.3 K/uL (1.8-6.4); NRBC (%) 0.9 /100 WBC (0-0); PLATELET COUNT 123 K/uL (156-360); RBC DIS.WIDTH-CV 20.5 % (11.8-14.6); RBC DIS.WIDTH-SD 56.8 % (39-53); RED BLOOD COUNT 3.37 M/uL (4.00-5.50); WHITE BLOOD COUNT 4.3 K/uL (4.1-10.2)
[2017-08-05 06:52] LABS: CHLORIDE 108 MEQ/L (99-109); CREATININE 2.4 MG/DL (0.6-1.3); GFR ESTIMATE (CALCULATED) 29 mL/min/ (58.99-99999); GLUCOSE 112 mg/dL (70-99); POTASSIUM 3.6 MEQ/L (3.7-5.4); SODIUM 144 MEQ/L (136-147); UREA NITROGEN (BUN) 57 mg/dL (9-23)
[2017-08-05 07:44] VITALS: BP 130/65
[2017-08-05 10:37] LABS: STOOL OCCULT BLD 1ST SPECIMEN NEGATIVE
[2017-08-05 16:00] VITALS: BP 116/59
== END 2017-08-05 17:46 | disposition home health service (06) | DRG 808 ==
LOC: EME → EDBD 04:49 → EME 04:49 → EDOF 07:01 → 5EAST 07:01 → ENRESERV 07:19 → EDOF 09:30 → ENRESERV 16:23 → 5EAST 19:07
PROVIDERS: Emergency Medicine; Family Medicine; Internal Medicine; Internal Medicine Nephrology
PROC: 30233N1 Transfusion of Nonautologous Red Blood Cells into Peripheral Vein, Percutaneous Approach (ICD-10-PCS; principal; 2017-07-30)
DX: D61.810 Antineoplastic chemotherapy induced pancytopenia (principal); T45.1X5A Adverse effect of antineoplastic and immunosuppressive drugs, initial encounter; N17.9 Acute kidney failure, unspecified; J18.9 Pneumonia, unspecified organism; J44.0 Chronic obstructive pulmonary disease with (acute) lower respiratory infection; I12.9 Hypertensive chronic kidney disease with stage 1 through stage 4 chronic kidney disease, or unspecified chronic kidney disease; N18.3 Chronic kidney disease, stage 3 (moderate); E11.22 Type 2 diabetes mellitus with diabetic chronic kidney disease; J90 Pleural effusion, not elsewhere classified; I48.1 Persistent atrial fibrillation; I48.0 Paroxysmal atrial fibrillation; I95.9 Hypotension, unspecified; R41.0 Disorientation, unspecified; E78.5 Hyperlipidemia, unspecified; I25.810 Atherosclerosis of coronary artery bypass graft(s) without angina pectoris; I08.0 Rheumatic disorders of both mitral and aortic valves; M06.9 Rheumatoid arthritis, unspecified; E11.42 Type 2 diabetes mellitus with diabetic polyneuropathy; R91.8 Other nonspecific abnormal finding of lung field; M54.9 Dorsalgia, unspecified; G89.29 Other chronic pain; F32.9 Major depressive disorder, single episode, unspecified; Z95.1 Presence of aortocoronary bypass graft; Z79.52 Long term (current) use of systemic steroids; Z79.899 Other long term (current) drug therapy; Z90.49 Acquired absence of other specified parts of digestive tract; Z82.49 Family history of ischemic heart disease and other diseases of the circulatory system
CPT/HCPCS: 36415; 70450; 71045; 71046; 80048; 80053; 81003; 82272; 82570; 82948; 83605; 83735; 83880; 84100; 84156; 84484; 85025; 85027; 86850; 86900; 86901; 86920; 87502; 93005; 94640; 94640 76; 94760; 99202; 99281; 99285; J1644; J1815; J7040; J7512; J7644; J8530; P9016

== ENCOUNTER 2017-08-11 03:48 | Emergency (ER) | payer OTHER ==
[~2017-08-11] VITALS: Ht 182.9 cm; Wt 104.7 kg
[~2017-08-11 03:48] MED LIST changes: +CATAPRES0.1 MG PO; +CYCLOPHOSPHAMID50 M2 PO; +PREDNISONE50 MG PO
[2017-08-11 05:05] LABS: HEMATOCRIT 29.2 % (38.0-50.0); HEMOGLOBIN 9.9 G/DL (12.5-16.6); MCH 29.4 PG (29.0-34.0); MCHC 33.9 G/DL (30.0-36.0); MCV 86.6 FL (86-99); NRBC (%) 0.5 /100 WBC (0-0); PLATELET COUNT 152 K/uL (156-360); RBC DIS.WIDTH-CV 22.5 % (11.8-14.6); RBC DIS.WIDTH-SD 66.4 % (39-53); RED BLOOD COUNT 3.37 M/uL (4.00-5.50); WHITE BLOOD COUNT 6.4 K/uL (4.1-10.2)
[2017-08-11 05:10] LABS: INTER. NORMALIZED RATIO 1.2
[2017-08-11 05:13] LABS: ALBUMIN 3.5 g/dL (3.2-4.8); CHLORIDE 105 mEq/L (99-109); POTASSIUM 3.3 mEq/L (3.7-5.4); PTT 25.3 SEC (25-37); SODIUM 143 mEq/L (136-147)
[2017-08-11 05:15] LABS: GLUCOSE 105 mg/dL (70-99)
[2017-08-11 05:16] LABS: TOTAL PROTEIN 5.7 g/dL (6.4-8.3)
[2017-08-11 05:17] LABS: TOTAL BILIRUBIN 1.8 mg/dL (0.0-1.0)
[2017-08-11 05:19] LABS: ALKALINE PHOSPHATASE 75 IU/L (3-129); CREATININE 2.6 mg/dL (0.6-1.3); GFR ESTIMATE (CALCULATED) 26 mL/min/ (58.99-99999)
[2017-08-11 05:20] LABS: UREA NITROGEN (BUN) 59 mg/dL (9-23)
[2017-08-11 05:21] LABS: AST (GOT) 13 IU/L (2-34)
[2017-08-11 05:22] LABS: ALT (GPT) 25 IU/L (3-49)
[2017-08-11 05:32] LABS: TROP-I INTERPRETATION NEGATIVE; TROPONIN-I 0.03 ng/mL (0.0-0.30)
[2017-08-11] MEDS ORDERED: CARDIZEM30 MG PO (06:01)
[2017-08-11 06:44] VITALS: BP 94/58
== END 2017-08-11 06:44 | disposition home or self-care (01) ==
LOC: EME → EDBD 03:48 → EME 03:48
PROVIDERS: Emergency Medicine Emergency Medical Services
DX: I48.91 Unspecified atrial fibrillation (principal); R07.9 Chest pain, unspecified; I11.0 Hypertensive heart disease with heart failure; I50.9 Heart failure, unspecified; R06.02 Shortness of breath; E11.9 Type 2 diabetes mellitus without complications; Z79.4 Long term (current) use of insulin; J44.9 Chronic obstructive pulmonary disease, unspecified; Z95.1 Presence of aortocoronary bypass graft; Z87.891 Personal history of nicotine dependence; F32.9 Major depressive disorder, single episode, unspecified
CPT/HCPCS: 71045; 80053; 83880; 84484; 85027; 85610; 85730; 93005; 99281; 99285; J7040

== ENCOUNTER 2017-08-12 01:24 | Inpatient (IN) | payer OTHER ==
[~2017-08-12] VITALS: Ht 182.9 cm; Wt 108.8 kg
[2017-08-12] VITALS (7 sets, daily range): BP systolic 96–129; BP diastolic 54–59
[~2017-08-12 01:24] MED LIST changes: +CARDIZEM30 MG PO
[2017-08-12 02:08] LABS: HEMATOCRIT 26.2 % (38.0-50.0); MCH 29.9 PG (29.0-34.0); MCHC 34.4 G/DL (30.0-36.0); NRBC (%) 0.8 /100 WBC (0-0); PLATELET COUNT 140 K/uL (156-360); RBC DIS.WIDTH-CV 22.6 % (11.8-14.6); RBC DIS.WIDTH-SD 67.7 % (39-53); RED BLOOD COUNT 3.01 M/uL (4.00-5.50); WHITE BLOOD COUNT 6.3 K/uL (4.1-10.2)
[2017-08-12 02:17] LABS: ALBUMIN 3.3 g/dL (3.2-4.8); CHLORIDE 104 mEq/L (99-109); SODIUM 142 mEq/L (136-147)
[2017-08-12 02:20] LABS: GLUCOSE 105 mg/dL (70-99); POTASSIUM 4.1 mEq/L (3.7-5.4)
[2017-08-12 02:22] LABS: TOTAL BILIRUBIN 1.6 mg/dL (0.0-1.0)
[2017-08-12 02:23] LABS: ALKALINE PHOSPHATASE 70 IU/L (3-129); CREATININE 2.7 mg/dL (0.6-1.3); GFR ESTIMATE (CALCULATED) 25 mL/min/ (58.99-99999)
[2017-08-12 02:24] LABS: UREA NITROGEN (BUN) 62 mg/dL (9-23)
[2017-08-12 02:25] LABS: AST (GOT) 13 IU/L (2-34)
[2017-08-12 02:26] LABS: ALT (GPT) 22 IU/L (3-49)
[2017-08-12 02:28] LABS: TROP-I INTERPRETATION NEGATIVE; TROPONIN-I 0.02 ng/mL (0.0-0.30)
[2017-08-12 03:07] LABS: LIPASE 35 U/L (1.0-51.0)
[2017-08-12 04:39] LABS: APPEARANCE SL.HAZY ((CLEAR)); BILIRUBIN NEGATIVE; BLOOD LARGE; COLOR YELLOW ((YELLOW)); GLUCOSE (STRIP) NEGATIVE; KETONES NEGATIVE; LEUKOCYTES NEGATIVE; NITRITE NEGATIVE; PROTEIN (STRIP) 30; SPECIFIC GRAVITY 1.018 (1.000-1.030); UROBILINOGEN 0.2 MG/DL (0.2-1.0)
[2017-08-12 04:51] LABS: BACTERIA RARE /HPF; EPITHELIAL CELLS NONE SEEN /HPF; MUCUS TRACE /LPF; RED BLOOD CELLS TNTC /HPF (0-5); UCUL ADDED? YES
[2017-08-12 10:42] LABS: TROP-I INTERPRETATION NEGATIVE; TROPONIN-I 0.03 ng/mL (0.0-0.30)
[2017-08-12 18:39] LABS: TROP-I INTERPRETATION NEGATIVE; TROPONIN-I 0.02 ng/mL (0.0-0.30)
[2017-08-13] VITALS (7 sets, daily range): BP systolic 101–114; BP diastolic 53–61
[2017-08-13 03:21] LABS: TROP-I INTERPRETATION NEGATIVE; TROPONIN-I 0.02 ng/mL (0.0-0.30)
[2017-08-13] MEDS ORDERED: NOVOLOG PE100 UNITS/ SC (12:10)
[2017-08-13 13:32] LABS: CHLORIDE 101 MEQ/L (99-109); CREATININE 2.7 MG/DL (0.6-1.3); GFR ESTIMATE (CALCULATED) 25 mL/min/ (58.99-99999); POTASSIUM 4.1 MEQ/L (3.7-5.4); SODIUM 136 MEQ/L (136-147); UREA NITROGEN (BUN) 68 mg/dL (9-23)
[2017-08-13 13:34] LABS: GLUCOSE 350 mg/dL (70-99)
[2017-08-14 04:07] VITALS: BP 108/58
[2017-08-14 07:04] LABS: HEMATOCRIT 25.9 % (38.0-50.0); HEMOGLOBIN 8.4 G/DL (12.5-16.6); MCH 29.6 PG (29.0-34.0); MCHC 32.4 G/DL (30.0-36.0); NRBC (%) 0.9 /100 WBC (0-0); PLATELET COUNT 144 K/uL (156-360); RBC DIS.WIDTH-CV 23.7 % (11.8-14.6); RED BLOOD COUNT 2.84 M/uL (4.00-5.50); WHITE BLOOD COUNT 6.8 K/uL (4.1-10.2)
[2017-08-14 07:05] VITALS: BP 109/56
[2017-08-14 07:05] LABS: MCV 91.2 FL (86-99)
[2017-08-14 07:13] LABS: ALBUMIN 2.9 G/DL (3.2-4.8); CHLORIDE 105 MEQ/L (99-109); POTASSIUM 4.7 MEQ/L (3.7-5.4); SODIUM 142 MEQ/L (136-147)
[2017-08-14 07:21] LABS: CREATININE 2.5 MG/DL (0.6-1.3); GFR ESTIMATE (CALCULATED) 28 mL/min/ (58.99-99999); UREA NITROGEN (BUN) 61 mg/dL (9-23)
[2017-08-14 07:23] LABS: GLUCOSE 156 mg/dL (70-99)
[2017-08-14 11:00] VITALS: BP 125/55
[2017-08-14 16:23] VITALS: BP 129/72
[2017-08-14 19:56] VITALS: BP 123/62
[2017-08-15 03:40] VITALS: BP 91/59
[2017-08-15 07:03] LABS: ALBUMIN 2.9 G/DL (3.2-4.8); CHLORIDE 105 MEQ/L (99-109); CREATININE 2.4 MG/DL (0.6-1.3); GFR ESTIMATE (CALCULATED) 29 mL/min/ (58.99-99999); PHOSPHORUS 3.1 mg/dL (2.5-4.9); SODIUM 143 MEQ/L (136-147); UREA NITROGEN (BUN) 72 mg/dL (9-23)
[2017-08-15 07:06] LABS: GLUCOSE 83 mg/dL (70-99); POTASSIUM 3.7 MEQ/L (3.7-5.4)
[2017-08-15 07:55] VITALS: BP 151/68
[2017-08-15 11:39] VITALS: BP 101/54
[2017-08-15 16:37] VITALS: BP 115/68
[2017-08-15 19:45] VITALS: BP 106/53
[2017-08-15 22:57] VITALS: BP 97/59
[2017-08-16 03:22] VITALS: BP 103/63
[2017-08-16 06:26] LABS: ALBUMIN 3.1 G/DL (3.2-4.8); CHLORIDE 105 MEQ/L (99-109); CREATININE 2.3 MG/DL (0.6-1.3); GFR ESTIMATE (CALCULATED) 30 mL/min/ (58.99-99999); PHOSPHORUS 3.1 mg/dL (2.5-4.9); POTASSIUM 4.2 MEQ/L (3.7-5.4); SODIUM 143 MEQ/L (136-147); UREA NITROGEN (BUN) 77 mg/dL (9-23)
[2017-08-16 06:27] LABS: GLUCOSE 170 mg/dL (70-99)
[2017-08-16 07:46] VITALS: BP 110/56
[2017-08-16 10:19] LABS: HEMOGLOBIN A1c (GLYCOHEMOGLOB) 6.1 % (Below 5.7)
[2017-08-16 11:12] VITALS: BP 106/50
[2017-08-16 16:06] VITALS: BP 108/64
[2017-08-16 20:27] VITALS: BP 114/59
[2017-08-16 21:30] VITALS: BP 106/58
[2017-08-17] VITALS (8 sets, daily range): BP systolic 102–140; BP diastolic 50–75
[2017-08-17 06:42] LABS: BASOPHIL (%) 0 % (0-1); EOSINOPHIL (%) 0.2 % (0-5); HEMATOCRIT 25.6 % (38.0-50.0); HEMOGLOBIN 8.2 G/DL (12.5-16.6); IMMATURE GRANULOCYTE (%) 1.7 % (0.0-0.7); LYMPHOCYTE (%) 12.3 % (15-42); LYMPHOCYTE COUNT 0.7 K/uL (1.0-2.8); MCH 29.3 PG (29.0-34.0); MCV 91.4 FL (86-99); MONOCYTE (%) 5.6 % (3-12); MONOCYTE COUNT 0.3 K/uL (0-0.8); NEUTROPHIL (%) 80.2 % (45-76); NEUTROPHIL COUNT 4.7 K/uL (1.8-6.4); NRBC (%) 1.4 /100 WBC (0-0); PLATELET COUNT 157 K/uL (156-360); RBC DIS.WIDTH-CV 23.8 % (11.8-14.6); WHITE BLOOD COUNT 5.9 K/uL (4.1-10.2)
[2017-08-17 07:03] LABS: CHLORIDE 102 MEQ/L (99-109); CREATININE 2.1 MG/DL (0.6-1.3); GFR ESTIMATE (CALCULATED) 34 mL/min/ (58.99-99999); GLUCOSE 156 mg/dL (70-99); MAGNESIUM 2.1 mg/dl (1.3-2.7); PHOSPHORUS 3.1 mg/dL (2.5-4.9); POTASSIUM 3.9 MEQ/L (3.7-5.4); SODIUM 142 MEQ/L (136-147); UREA NITROGEN (BUN) 77 mg/dL (9-23)
[2017-08-18 04:00] VITALS: BP 122/71
[2017-08-18 05:41] LABS: BASOPHIL (%) 0.1 % (0-1); EOSINOPHIL (%) 0.1 % (0-5); HEMATOCRIT 26.7 % (38.0-50.0); HEMOGLOBIN 8.7 G/DL (12.5-16.6); IMMATURE GRANULOCYTE (%) 1.5 % (0.0-0.7); LYMPHOCYTE (%) 14.5 % (15-42); MCH 29.7 PG (29.0-34.0); MCHC 32.6 G/DL (30.0-36.0); MCV 91.1 FL (86-99); MONOCYTE (%) 5.5 % (3-12); MONOCYTE COUNT 0.4 K/uL (0-0.8); NEUTROPHIL (%) 78.3 % (45-76); NEUTROPHIL COUNT 5.3 K/uL (1.8-6.4); NRBC (%) 1.2 /100 WBC (0-0); PLATELET COUNT 176 K/uL (156-360); RBC DIS.WIDTH-CV 23.8 % (11.8-14.6); RBC DIS.WIDTH-SD 73.8 % (39-53); RED BLOOD COUNT 2.93 M/uL (4.00-5.50); RETIC HGB EQUIVALENT 34.4 (28-36); RETICULOCYTE COUNT 7.7 % (0.5-1.8); WHITE BLOOD COUNT 6.7 K/uL (4.1-10.2)
[2017-08-18 06:08] LABS: CHLORIDE 103 MEQ/L (99-109); GFR ESTIMATE (CALCULATED) 36 mL/min/ (58.99-99999); GLUCOSE 173 mg/dL (70-99); IRON 123 MCG/DL (35-150); SODIUM 144 MEQ/L (136-147); TRANSFERRIN (TIBC) 169.3 mg/dL (215-380); TRANSFERRIN SATUR. 73 % (20-55); UREA NITROGEN (BUN) 84 mg/dL (9-23)
[2017-08-18 06:55] LABS: FERRITIN 553 NG/ML (22-322)
[2017-08-18 08:00] VITALS: BP 123/60
[2017-08-18 11:03] VITALS: BP 101/56
[2017-08-18 16:13] VITALS: BP 98/58
[2017-08-19] VITALS (7 sets, daily range): BP systolic 98–120; BP diastolic 53–74
[2017-08-20] VITALS (7 sets, daily range): BP systolic 92–146; BP diastolic 51–71
[2017-08-20 06:24] LABS: BASOPHIL (%) 0.2 % (0-1); EOSINOPHIL (%) 0.1 % (0-5); HEMOGLOBIN 9.9 G/DL (12.5-16.6); IMMATURE GRANULOCYTE (%) 1.1 % (0.0-0.7); LYMPHOCYTE (%) 11.6 % (15-42); LYMPHOCYTE COUNT 1.4 K/uL (1.0-2.8); MCH 30.2 PG (29.0-34.0); MCV 91.5 FL (86-99); MONOCYTE (%) 7.7 % (3-12); MONOCYTE COUNT 0.9 K/uL (0-0.8); NEUTROPHIL (%) 79.3 % (45-76); NEUTROPHIL COUNT 9.7 K/uL (1.8-6.4); NRBC (%) 2.9 /100 WBC (0-0); RBC DIS.WIDTH-CV 23.8 % (11.8-14.6); RBC DIS.WIDTH-SD 75.2 % (39-53); RED BLOOD COUNT 3.28 M/uL (4.00-5.50); WHITE BLOOD COUNT 12.2 K/uL (4.1-10.2)
[2017-08-20 06:42] LABS: PLATELET COUNT 266 K/uL (156-360)
[2017-08-20 07:20] LABS: CHLORIDE 103 MEQ/L (99-109); GFR ESTIMATE (CALCULATED) 36 mL/min/ (58.99-99999); POTASSIUM 4.1 MEQ/L (3.7-5.4); SODIUM 146 MEQ/L (136-147); UREA NITROGEN (BUN) 88 mg/dL (9-23)
[2017-08-20 07:22] LABS: GLUCOSE 13 mg/dL (70-99)
[2017-08-21] VITALS (20 sets, daily range): BP systolic 95–142; BP diastolic 53–100
[2017-08-22] VITALS (21 sets, daily range): BP systolic 92–141; BP diastolic 44–109
[2017-08-22 05:46] LABS: BASOPHIL (%) 0.1 % (0-1); EOSINOPHIL (%) 0 % (0-5); HEMATOCRIT 28.5 % (38.0-50.0); HEMOGLOBIN 9.1 G/DL (12.5-16.6); IMMATURE GRANULOCYTE (%) 1.2 % (0.0-0.7); LYMPHOCYTE (%) 9.2 % (15-42); LYMPHOCYTE COUNT 0.8 K/uL (1.0-2.8); MCH 30.6 PG (29.0-34.0); MCHC 31.9 G/DL (30.0-36.0); MONOCYTE (%) 5.8 % (3-12); MONOCYTE COUNT 0.5 K/uL (0-0.8); NEUTROPHIL (%) 83.7 % (45-76); NEUTROPHIL COUNT 7.3 K/uL (1.8-6.4); NRBC (%) 1.4 /100 WBC (0-0); RBC DIS.WIDTH-CV 24.6 % (11.8-14.6); RBC DIS.WIDTH-SD 81.4 % (39-53); RED BLOOD COUNT 2.97 M/uL (4.00-5.50); WHITE BLOOD COUNT 8.7 K/uL (4.1-10.2)
[2017-08-22 05:48] LABS: PLATELET COUNT 166 K/uL (156-360)
[2017-08-22 05:50] LABS: ALBUMIN 3.1 G/DL (3.2-4.8); ALKALINE PHOSPHATASE 55 IU/L (3-129); ALT (GPT) 14 IU/L (3-49); AST (GOT) 10 IU/L (2-34); CHLORIDE 101 MEQ/L (99-109); CREATININE 2.3 MG/DL (0.6-1.3); GFR ESTIMATE (CALCULATED) 30 mL/min/ (58.99-99999); PHOSPHORUS 3.4 mg/dL (2.5-4.9); POTASSIUM 4.2 MEQ/L (3.7-5.4); SODIUM 143 MEQ/L (136-147); TOTAL BILIRUBIN 0.6 MG/DL (0.0-1.0); TOTAL PROTEIN 5.2 G/DL (6.4-8.3); UREA NITROGEN (BUN) 98 mg/dL (9-23)
[2017-08-22 05:51] LABS: GLUCOSE 267 mg/dL (70-99); MAGNESIUM 2.5 mg/dl (1.3-2.7)
[2017-08-23 03:30] VITALS: BP 102/58
[2017-08-23 05:11] LABS: BASOPHIL (%) 0.1 % (0-1); EOSINOPHIL (%) 0.3 % (0-5); HEMATOCRIT 30.2 % (38.0-50.0); HEMOGLOBIN 9.8 G/DL (12.5-16.6); IMMATURE GRANULOCYTE (%) 1.5 % (0.0-0.7); LYMPHOCYTE (%) 8.3 % (15-42); LYMPHOCYTE COUNT 0.7 K/uL (1.0-2.8); MCH 31.1 PG (29.0-34.0); MCHC 32.5 G/DL (30.0-36.0); MCV 95.9 FL (86-99); MONOCYTE (%) 5.1 % (3-12); MONOCYTE COUNT 0.4 K/uL (0-0.8); NEUTROPHIL (%) 84.7 % (45-76); NEUTROPHIL COUNT 7.3 K/uL (1.8-6.4); NRBC (%) 2.5 /100 WBC (0-0); PLATELET COUNT 191 K/uL (156-360); RBC DIS.WIDTH-CV 24.8 % (11.8-14.6); RBC DIS.WIDTH-SD 81.8 % (39-53); RED BLOOD COUNT 3.15 M/uL (4.00-5.50); WHITE BLOOD COUNT 8.6 K/uL (4.1-10.2)
[2017-08-23 05:36] LABS: CHLORIDE 103 MEQ/L (99-109); GFR ESTIMATE (CALCULATED) 36 mL/min/ (58.99-99999); POTASSIUM 4.8 MEQ/L (3.7-5.4); SODIUM 144 MEQ/L (136-147); UREA NITROGEN (BUN) 85 mg/dL (9-23)
[2017-08-23 05:37] LABS: GLUCOSE 98 mg/dL (70-99)
[2017-08-23 07:32] LABS: POTASSIUM 3.9 MEQ/L (3.7-5.4)
[2017-08-23 08:30] VITALS: BP 131/60
[2017-08-23 12:02] VITALS: BP 116/54
[2017-08-23 16:04] VITALS: BP 116/63
[2017-08-23 19:30] VITALS: BP 163/65
[2017-08-23 23:00] VITALS: BP 147/80
[2017-08-24 04:00] VITALS: BP 109/75
[2017-08-24 05:42] LABS: BASOPHIL (%) 0.1 % (0-1); EOSINOPHIL (%) 0 % (0-5); HEMOGLOBIN 9.8 G/DL (12.5-16.6); IMMATURE GRANULOCYTE (%) 0.8 % (0.0-0.7); LYMPHOCYTE (%) 10.8 % (15-42); LYMPHOCYTE COUNT 0.8 K/uL (1.0-2.8); MCH 30.1 PG (29.0-34.0); MCHC 31.6 G/DL (30.0-36.0); MCV 95.1 FL (86-99); MONOCYTE (%) 5.3 % (3-12); MONOCYTE COUNT 0.4 K/uL (0-0.8); NEUTROPHIL COUNT 5.9 K/uL (1.8-6.4); PLATELET COUNT 177 K/uL (156-360); RBC DIS.WIDTH-CV 24.2 % (11.8-14.6); RBC DIS.WIDTH-SD 80.9 % (39-53); RED BLOOD COUNT 3.26 M/uL (4.00-5.50); WHITE BLOOD COUNT 7.1 K/uL (4.1-10.2)
[2017-08-24 06:36] LABS: CHLORIDE 106 MEQ/L (99-109); CREATININE 1.8 MG/DL (0.6-1.3); GFR ESTIMATE (CALCULATED) 40 mL/min/ (58.99-99999); MAGNESIUM 2.3 mg/dl (1.3-2.7); PHOSPHORUS 3.9 mg/dL (2.5-4.9); POTASSIUM 4.4 MEQ/L (3.7-5.4); SODIUM 147 MEQ/L (136-147); UREA NITROGEN (BUN) 81 mg/dL (9-23)
[2017-08-24 06:50] LABS: GLUCOSE 183 mg/dL (70-99)
[2017-08-24 07:06] VITALS: BP 125/60
[2017-08-24 11:18] VITALS: BP 119/51
[2017-08-24 15:08] VITALS: BP 115/57
[2017-08-24 19:46] VITALS: BP 123/62
[2017-08-25 00:05] VITALS: BP 139/62
[2017-08-25 04:29] VITALS: BP 122/62
[2017-08-25 05:11] LABS: BASOPHIL (%) 0 % (0-1); EOSINOPHIL (%) 0.1 % (0-5); HEMATOCRIT 31.5 % (38.0-50.0); HEMOGLOBIN 10.1 G/DL (12.5-16.6); IMMATURE GRANULOCYTE (%) 0.9 % (0.0-0.7); LYMPHOCYTE (%) 9.2 % (15-42); LYMPHOCYTE COUNT 0.8 K/uL (1.0-2.8); MCH 31.2 PG (29.0-34.0); MCHC 32.1 G/DL (30.0-36.0); MCV 97.2 FL (86-99); MONOCYTE (%) 4.3 % (3-12); MONOCYTE COUNT 0.4 K/uL (0-0.8); NEUTROPHIL (%) 85.5 % (45-76); NRBC (%) 0.9 /100 WBC (0-0); PLATELET COUNT 163 K/uL (156-360); RBC DIS.WIDTH-CV 24.3 % (11.8-14.6); RBC DIS.WIDTH-SD 84.2 % (39-53); RED BLOOD COUNT 3.24 M/uL (4.00-5.50); WHITE BLOOD COUNT 8.2 K/uL (4.1-10.2)
[2017-08-25 05:43] LABS: CHLORIDE 102 MEQ/L (99-109); CREATININE 1.7 MG/DL (0.6-1.3); GFR ESTIMATE (CALCULATED) 43 mL/min/ (58.99-99999); POTASSIUM 4.3 MEQ/L (3.7-5.4); SODIUM 145 MEQ/L (136-147); UREA NITROGEN (BUN) 74 mg/dL (9-23)
[2017-08-25 05:44] LABS: GLUCOSE 118 mg/dL (70-99)
[2017-08-25 07:46] VITALS: BP 105/61
[2017-08-25 11:14] VITALS: BP 144/65
[2017-08-25 15:25] VITALS: BP 114/53
[2017-08-25 21:41] VITALS: BP 124/57
[2017-08-26] VITALS (8 sets, daily range): BP systolic 106–166; BP diastolic 56–82
[2017-08-26 06:15] LABS: CHLORIDE 104 MEQ/L (99-109); CREATININE 1.7 MG/DL (0.6-1.3); GFR ESTIMATE (CALCULATED) 43 mL/min/ (58.99-99999); GLUCOSE 161 mg/dL (70-99); PHOSPHORUS 3.8 mg/dL (2.5-4.9); POTASSIUM 4.2 MEQ/L (3.7-5.4); SODIUM 145 MEQ/L (136-147); UREA NITROGEN (BUN) 76 mg/dL (9-23)
[2017-08-27 04:00] VITALS: BP 120/53
[2017-08-27 07:00] VITALS: BP 118/90
[2017-08-27 07:18] LABS: ALBUMIN 2.9 G/DL (3.2-4.8); CHLORIDE 104 MEQ/L (99-109); POTASSIUM 4.6 MEQ/L (3.7-5.4); SODIUM 143 MEQ/L (136-147)
[2017-08-27 07:24] LABS: CREATININE 1.7 MG/DL (0.6-1.3); GFR ESTIMATE (CALCULATED) 43 mL/min/ (58.99-99999); GLUCOSE 158 mg/dL (70-99); PHOSPHORUS 4.1 mg/dL (2.5-4.9); UREA NITROGEN (BUN) 79 mg/dL (9-23)
[2017-08-27 11:01] VITALS: BP 112/49
[2017-08-27 15:43] VITALS: BP 106/55
[2017-08-27] MEDS ORDERED: BENADRYL50 MG/1 ML IV (17:37)
[2017-08-27] MEDS ORDERED: ATENOLOL25 MG PO (17:55)
[2017-08-27] MEDS ORDERED: CARDIZEM30 MG PO (17:56)
[2017-08-27 19:55] VITALS: BP 110/55
[2017-08-28 00:04] VITALS: BP 98/56
[2017-08-28 04:38] VITALS: BP 129/60
[2017-08-28 06:32] LABS: ALBUMIN 2.8 G/DL (3.2-4.8); CHLORIDE 104 MEQ/L (99-109); CREATININE 1.8 MG/DL (0.6-1.3); GFR ESTIMATE (CALCULATED) 40 mL/min/ (58.99-99999); GLUCOSE 230 mg/dL (70-99); PHOSPHORUS 4.8 mg/dL (2.5-4.9); POTASSIUM 4.4 MEQ/L (3.7-5.4); SODIUM 146 MEQ/L (136-147); UREA NITROGEN (BUN) 78 mg/dL (9-23)
[2017-08-28 06:53] VITALS: BP 127/58
== END 2017-08-28 10:00 | DRG 699 ==
LOC: EME → EDBD 01:24 → EME 01:24 → EDOF 05:25 → 3EAST 05:25 → 4EAST 05:25 → 4WEST 05:25 → 5EAST 05:25 → ENRESERV 05:49 → 3EAST 07:50 → ENRESERV 15:17 → 5EAST 18:15 → 4WEST 08-20 23:34 → ENRESERV 08-20 23:43 → 4WEST 08-20 23:59 → ENRESERV 08-21 14:29 → 4WEST 08-21 21:56 → ENRESERV 08-22 23:08 → 4EAST 08-22 23:51 → ENRESERV 08-26 19:40 → 5EAST 08-26 22:32 → ENPENDDIS 08-28 10:00 → 5EAST 08-28 10:00
PROVIDERS: Emergency Medicine; Family Medicine; Internal Medicine Nephrology
PROC: 3E0330M Introduction of Antineoplastic, Monoclonal Antibody, into Peripheral Vein, Percutaneous Approach (ICD-10-PCS; principal; 2017-08-13)
DX: N00.8 Acute nephritic syndrome with other morphologic changes (principal); N17.9 Acute kidney failure, unspecified; R07.89 Other chest pain; I48.0 Paroxysmal atrial fibrillation; J90 Pleural effusion, not elsewhere classified; N18.3 Chronic kidney disease, stage 3 (moderate); E11.22 Type 2 diabetes mellitus with diabetic chronic kidney disease; E11.42 Type 2 diabetes mellitus with diabetic polyneuropathy; J44.1 Chronic obstructive pulmonary disease with (acute) exacerbation; E11.649 Type 2 diabetes mellitus with hypoglycemia without coma; F41.0 Panic disorder [episodic paroxysmal anxiety]; E11.65 Type 2 diabetes mellitus with hyperglycemia; T38.0X5A Adverse effect of glucocorticoids and synthetic analogues, initial encounter; J98.4 Other disorders of lung; I08.3 Combined rheumatic disorders of mitral, aortic and tricuspid valves; I27.20 Pulmonary hypertension, unspecified; D63.1 Anemia in chronic kidney disease; I25.10 Atherosclerotic heart disease of native coronary artery without angina pectoris; I10 Essential (primary) hypertension; E78.5 Hyperlipidemia, unspecified; J98.11 Atelectasis; K59.00 Constipation, unspecified; M06.9 Rheumatoid arthritis, unspecified; M47.9 Spondylosis, unspecified; Z77.090 Contact with and (suspected) exposure to asbestos; E66.9 Obesity, unspecified; Z68.33 Body mass index [BMI] 33.0-33.9, adult; Z95.1 Presence of aortocoronary bypass graft; Z87.891 Personal history of nicotine dependence; Z79.4 Long term (current) use of insulin; Z79.899 Other long term (current) drug therapy; Z87.11 Personal history of peptic ulcer disease
CPT/HCPCS: 71045; 71046; 74176; 80048; 80053; 80069; 81003; 82607; 82728; 82746; 82948; 83036; 83540; 83690; 83735; 83880; 84100; 84466; 84484; 84999; 85025; 85027; 85046; 85610; 85730; 87086; 87641; 93005; 94640; 94640 76; 94799; 97530 GO; 97530 GP; 99202; 99281; 99285; J0881; J1160; J1200; J1815; J2930; J7040; J7050; J7512; J9310

== ENCOUNTER 2017-08-30 18:02 | Inpatient (IN) | payer OTHER ==
[~2017-08-30] VITALS: Ht 182.9 cm; Wt 102.0 kg
[~2017-08-30 18:02] MED LIST changes: +BENADRYL50 MG/1 ML IV
[2017-08-30 18:44] LABS: HEMATOCRIT 33.1 % (38.0-50.0); HEMOGLOBIN 10.9 G/DL (12.5-16.6); MCH 31.8 PG (29.0-34.0); MCHC 32.9 G/DL (30.0-36.0); MCV 96.5 FL (86-99); NRBC (%) 0.3 /100 WBC (0-0); PLATELET COUNT 169 K/uL (156-360); RBC DIS.WIDTH-CV 21.2 % (11.8-14.6); RBC DIS.WIDTH-SD 73.4 % (39-53); RED BLOOD COUNT 3.43 M/uL (4.00-5.50); WHITE BLOOD COUNT 10.7 K/uL (4.1-10.2)
[2017-08-30 18:52] LABS: CHLORIDE 103 mEq/L (99-109); POTASSIUM 5.2 mEq/L (3.7-5.4); SODIUM 143 mEq/L (136-147)
[2017-08-30 18:54] LABS: GLUCOSE 320 mg/dL (70-99)
[2017-08-30 18:59] LABS: GFR ESTIMATE (CALCULATED) 30 mL/min/ (58.99-99999); UREA NITROGEN (BUN) 88 mg/dL (9-23)
[2017-08-30 19:01] LABS: CREATININE 2.3 mg/dL (0.6-1.3)
[2017-08-30 19:06] LABS: TROP-I INTERPRETATION NEGATIVE; TROPONIN-I 0.02 ng/mL (0.0-0.30)
[2017-08-30 20:11] LABS: BASE EXCESS 6.9 mEq/L (-3 to +3); BICARBONATE 31.9 mEq/L (22-26); COMMENTS - BLOOD GASES C+A+; DEVICE NC; METHEMOGLOBIN 0.7 % (0-1.5); O2 FLOW 3 L/MIN; PCO2 47 mm Hg (35-45); PO2 58 mm Hg (80-100); SITE RR; TOTAL RESP RATE 30 resp/min; pH 7.44 (7.35-7.45)
[2017-08-30] MEDS ORDERED: TENORMIN25 MG PO (21:13)
[2017-08-30] MEDS ORDERED: SYMBICORT60 INHALAT IH (21:21)
[2017-08-30] MEDS ORDERED: ASPIR 8181 M1 PO (21:22)
[2017-08-30] MEDS ORDERED: KLONOPIN0.5 M1 PO (21:22)
[2017-08-30] MEDS ORDERED: CARDIZEM LA240 MG PO (21:36)
[2017-08-30] MEDS ORDERED: BENADRYL25 MG PO (21:39)
[2017-08-30] MEDS ORDERED: HUMALOG100 UNIT/1 SC (21:49)
[2017-08-30 22:45] VITALS: BP 145/65
[2017-08-31 03:02] VITALS: BP 122/59
[2017-08-31 05:05] VITALS: BP 131/60
[2017-08-31 05:41] LABS: BASOPHIL (%) 0 % (0-1); EOSINOPHIL (%) 0 % (0-5); HEMATOCRIT 30.9 % (38.0-50.0); HEMOGLOBIN 9.7 G/DL (12.5-16.6); IMMATURE GRANULOCYTE (%) 0.5 % (0.0-0.7); LYMPHOCYTE (%) 3.6 % (15-42); LYMPHOCYTE COUNT 0.4 K/uL (1.0-2.8); MCH 30.6 PG (29.0-34.0); MCHC 31.4 G/DL (30.0-36.0); MCV 97.5 FL (86-99); MONOCYTE (%) 0.7 % (3-12); MONOCYTE COUNT 0.1 K/uL (0-0.8); NEUTROPHIL (%) 95.2 % (45-76); NEUTROPHIL COUNT 9.5 K/uL (1.8-6.4); PLATELET COUNT 175 K/uL (156-360); RBC DIS.WIDTH-SD 74.4 % (39-53); RED BLOOD COUNT 3.17 M/uL (4.00-5.50)
[2017-08-31 06:10] LABS: ALBUMIN 2.7 G/DL (3.2-4.8); ALKALINE PHOSPHATASE 71 IU/L (3-129); ALT (GPT) 17 IU/L (3-49); AST (GOT) 11 IU/L (2-34); CHLORIDE 106 MEQ/L (99-109); CREATININE 1.7 MG/DL (0.6-1.3); DIRECT BILIRUBIN 0.3 mg/dL (0.0-0.3); GFR ESTIMATE (CALCULATED) 43 mL/min/ (58.99-99999); GLUCOSE 232 mg/dL (70-99); PHOSPHORUS 4.6 mg/dL (2.5-4.9); POTASSIUM 4.5 MEQ/L (3.7-5.4); SODIUM 143 MEQ/L (136-147); TOTAL BILIRUBIN 0.9 MG/DL (0.0-1.0); TOTAL PROTEIN 5.1 G/DL (6.4-8.3); UREA NITROGEN (BUN) 70 mg/dL (9-23)
[2017-08-31 09:06] VITALS: BP 134/70
[2017-08-31 11:49] VITALS: BP 135/63
[2017-08-31 17:08] VITALS: BP 140/62
[2017-08-31 19:49] VITALS: BP 134/61
[2017-09-01] VITALS (7 sets, daily range): BP systolic 136–163; BP diastolic 58–82
[2017-09-01 05:54] LABS: ALBUMIN 2.8 G/DL (3.2-4.8); CHLORIDE 106 MEQ/L (99-109); POTASSIUM 4.3 MEQ/L (3.7-5.4); SODIUM 144 MEQ/L (136-147)
[2017-09-01 06:00] LABS: CREATININE 1.9 MG/DL (0.6-1.3); GFR ESTIMATE (CALCULATED) 38 mL/min/ (58.99-99999); GLUCOSE 214 mg/dL (70-99); PHOSPHORUS 4.3 mg/dL (2.5-4.9); UREA NITROGEN (BUN) 78 mg/dL (9-23)
[2017-09-02] VITALS (9 sets, daily range): BP systolic 124–162; BP diastolic 66–88
[2017-09-02 06:11] LABS: ALBUMIN 2.8 G/DL (3.2-4.8); CHLORIDE 105 MEQ/L (99-109); CREATININE 1.9 MG/DL (0.6-1.3); GFR ESTIMATE (CALCULATED) 38 mL/min/ (58.99-99999); GLUCOSE 229 mg/dL (70-99); POTASSIUM 3.9 MEQ/L (3.7-5.4); SODIUM 147 MEQ/L (136-147); UREA NITROGEN (BUN) 84 mg/dL (9-23)
[2017-09-02 06:17] LABS: PHOSPHORUS 5.9 mg/dL (2.5-4.9)
[2017-09-03] VITALS (7 sets, daily range): BP systolic 134–170; BP diastolic 64–79
[2017-09-03 05:38] LABS: BASOPHIL (%) 0.1 % (0-1); EOSINOPHIL (%) 0 % (0-5); HEMATOCRIT 29.5 % (38.0-50.0); HEMOGLOBIN 9.6 G/DL (12.5-16.6); IMMATURE GRANULOCYTE (%) 0.8 % (0.0-0.7); LYMPHOCYTE (%) 2.2 % (15-42); LYMPHOCYTE COUNT 0.2 K/uL (1.0-2.8); MCH 30.8 PG (29.0-34.0); MCHC 32.5 G/DL (30.0-36.0); MCV 94.6 FL (86-99); MONOCYTE (%) 1.4 % (3-12); MONOCYTE COUNT 0.1 K/uL (0-0.8); NEUTROPHIL (%) 95.5 % (45-76); NEUTROPHIL COUNT 9.3 K/uL (1.8-6.4); NRBC (%) 0.5 /100 WBC (0-0); PLATELET COUNT 177 K/uL (156-360); RBC DIS.WIDTH-SD 65.7 % (39-53); RED BLOOD COUNT 3.12 M/uL (4.00-5.50); WHITE BLOOD COUNT 9.7 K/uL (4.1-10.2)
[2017-09-03 06:03] LABS: ALBUMIN 2.7 G/DL (3.2-4.8); ALKALINE PHOSPHATASE 64 IU/L (3-129); ALT (GPT) 18 IU/L (3-49); AST (GOT) 12 IU/L (2-34); CHLORIDE 106 MEQ/L (99-109); CREATININE 1.8 MG/DL (0.6-1.3); GFR ESTIMATE (CALCULATED) 40 mL/min/ (58.99-99999); GLUCOSE 209 mg/dL (70-99); GLUCOSE 212 mg/dL (70-99); PHOSPHORUS 4.8 mg/dL (2.5-4.9); POTASSIUM 3.9 MEQ/L (3.7-5.4); SODIUM 144 MEQ/L (136-147); SODIUM 145 MEQ/L (136-147); TOTAL BILIRUBIN 0.9 MG/DL (0.0-1.0); TOTAL PROTEIN 4.6 G/DL (6.4-8.3); UREA NITROGEN (BUN) 89 mg/dL (9-23); UREA NITROGEN (BUN) 91 mg/dL (9-23)
[2017-09-04] VITALS (13 sets, daily range): BP systolic 128–171; BP diastolic 52–92
[2017-09-04 05:06] LABS: BASOPHIL (%) 0.1 % (0-1); EOSINOPHIL (%) 0 % (0-5); HEMOGLOBIN 9.8 G/DL (12.5-16.6); IMMATURE GRANULOCYTE (%) 1.4 % (0.0-0.7); LYMPHOCYTE (%) 1.7 % (15-42); LYMPHOCYTE COUNT 0.2 K/uL (1.0-2.8); MCH 31.9 PG (29.0-34.0); MCHC 33.8 G/DL (30.0-36.0); MCV 94.5 FL (86-99); MONOCYTE (%) 1.3 % (3-12); MONOCYTE COUNT 0.2 K/uL (0-0.8); NEUTROPHIL (%) 95.5 % (45-76); NEUTROPHIL COUNT 11.2 K/uL (1.8-6.4); NRBC (%) 0.3 /100 WBC (0-0); PLATELET COUNT 188 K/uL (156-360); RBC DIS.WIDTH-CV 18.2 % (11.8-14.6); RBC DIS.WIDTH-SD 62.9 % (39-53); RED BLOOD COUNT 3.07 M/uL (4.00-5.50); WHITE BLOOD COUNT 11.8 K/uL (4.1-10.2)
[2017-09-04 05:25] LABS: CHLORIDE 105 mEq/L (99-109)
[2017-09-04 05:26] LABS: POTASSIUM 3.9 mEq/L (3.7-5.4); SODIUM 143 mEq/L (136-147)
[2017-09-04 05:27] LABS: GLUCOSE 192 mg/dL (70-99)
[2017-09-04 05:31] LABS: CREATININE 1.7 mg/dL (0.6-1.3); GFR ESTIMATE (CALCULATED) 43 mL/min/ (58.99-99999)
[2017-09-04 05:34] LABS: UREA NITROGEN (BUN) 101 mg/dL (9-23)
[2017-09-04 14:38] LABS: BASE EXCESS 6.5 mEq/L (-3 to +3); BICARBONATE 31.3 mEq/L (22-26); CARBOXY HGB 2.4 % (0-5); COMMENTS - BLOOD GASES A+C+; DEVICE NRBM; FI02 100 %; METHEMOGLOBIN 1.8 % (0-1.5); O2 FLOW 15 L/MIN; PCO2 45 mm Hg (35-45); PO2 208 mm Hg (80-100); SITE LR; pH 7.45 (7.35-7.45)
[2017-09-04 15:19] LABS: HEMATOCRIT 32.6 % (38.0-50.0); HEMOGLOBIN 11.1 G/DL (12.5-16.6); MCV 93.9 FL (86-99); NRBC (%) 0.5 /100 WBC (0-0); RBC DIS.WIDTH-CV 18.3 % (11.8-14.6); RBC DIS.WIDTH-SD 62.4 % (39-53); RED BLOOD COUNT 3.47 M/uL (4.00-5.50)
[2017-09-04 15:46] LABS: TROP-I INTERPRETATION NEGATIVE; TROPONIN-I 0.12 ng/mL (0.0-0.30)
[2017-09-04 16:15] LABS: PLAT.SUFFICIENCY ADEQUATE; PLATELET COUNT UNABLE TO REPORT K/uL (156-360)
[2017-09-04 16:59] LABS: CHLORIDE 103 MEQ/L (99-109); CREATININE 1.9 MG/DL (0.6-1.3); GFR ESTIMATE (CALCULATED) 38 mL/min/ (58.99-99999); GLUCOSE 243 mg/dL (70-99); POTASSIUM 4.1 MEQ/L (3.7-5.4); SODIUM 143 MEQ/L (136-147); UREA NITROGEN (BUN) 99 mg/dL (9-23)
[2017-09-05] VITALS (25 sets, daily range): BP systolic 100–141; BP diastolic 42–65
[2017-09-05 06:42] LABS: HEMATOCRIT 27.6 % (38.0-50.0); MCH 30.9 PG (29.0-34.0); MCHC 32.2 G/DL (30.0-36.0); MCV 95.8 FL (86-99); NRBC (%) 0.3 /100 WBC (0-0); RBC DIS.WIDTH-CV 17.5 % (11.8-14.6); RBC DIS.WIDTH-SD 61.6 % (39-53); RED BLOOD COUNT 2.88 M/uL (4.00-5.50); WHITE BLOOD COUNT 7.5 K/uL (4.1-10.2)
[2017-09-05 07:20] LABS: HEMOGLOBIN 8.9 G/DL (12.5-16.6); PLATELET COUNT 126 K/uL (156-360)
[2017-09-05 13:30] LABS: INTER. NORMALIZED RATIO ND
[2017-09-05 14:14] LABS: INTER. NORMALIZED RATIO 1.2
[2017-09-05 14:17] LABS: PTT 26.1 SEC (25-37)
[2017-09-05 15:18] LABS: DIGOXIN 2.4 ng/mL (0.8-2.0)
[2017-09-05 15:53] LABS: ALBUMIN 2.4 G/DL (3.2-4.8); ALKALINE PHOSPHATASE 66 IU/L (3-129); ALT (GPT) 23 IU/L (3-49); AST (GOT) 12 IU/L (2-34); CHLORIDE 103 MEQ/L (99-109); CREATININE 1.7 MG/DL (0.6-1.3); GFR ESTIMATE (CALCULATED) 43 mL/min/ (58.99-99999); GLUCOSE 303 mg/dL (70-99); MAGNESIUM 2.2 mg/dl (1.3-2.7); POTASSIUM 3.5 MEQ/L (3.7-5.4); SODIUM 142 MEQ/L (136-147)
[2017-09-05 15:54] LABS: TOTAL BILIRUBIN 0.6 MG/DL (0.0-1.0); UREA NITROGEN (BUN) 102 mg/dL (9-23)
[2017-09-06] VITALS (25 sets, daily range): BP systolic 117–154; BP diastolic 51–79
[2017-09-06 08:36] LABS: BASOPHIL (%) 0.1 % (0-1); EOSINOPHIL (%) 0 % (0-5); HEMATOCRIT 27.2 % (38.0-50.0); IMMATURE GRANULOCYTE (%) 0.7 % (0.0-0.7); LYMPHOCYTE COUNT 0.1 K/uL (1.0-2.8); MCH 31.4 PG (29.0-34.0); MCHC 33.1 G/DL (30.0-36.0); MCV 94.8 FL (86-99); MONOCYTE (%) 1.3 % (3-12); MONOCYTE COUNT 0.2 K/uL (0-0.8); NEUTROPHIL (%) 96.9 % (45-76); NEUTROPHIL COUNT 11.4 K/uL (1.8-6.4); NRBC (%) 0.2 /100 WBC (0-0); PLATELET COUNT 155 K/uL (156-360); RBC DIS.WIDTH-CV 17.5 % (11.8-14.6); RBC DIS.WIDTH-SD 61.6 % (39-53); RED BLOOD COUNT 2.87 M/uL (4.00-5.50); WHITE BLOOD COUNT 11.8 K/uL (4.1-10.2)
[2017-09-06 09:35] LABS: ALBUMIN 2.5 G/DL (3.2-4.8); ALKALINE PHOSPHATASE 71 IU/L (3-129); ALT (GPT) 29 IU/L (3-49); AST (GOT) 13 IU/L (2-34); CHLORIDE 104 MEQ/L (99-109); CREATININE 1.8 MG/DL (0.6-1.3); GFR ESTIMATE (CALCULATED) 40 mL/min/ (58.99-99999); GLUCOSE 276 mg/dL (70-99); MAGNESIUM 2.2 mg/dl (1.3-2.7); PHOSPHORUS 3.7 mg/dL (2.5-4.9); POTASSIUM 3.8 MEQ/L (3.7-5.4); SODIUM 141 MEQ/L (136-147); TOTAL BILIRUBIN 0.6 MG/DL (0.0-1.0); TOTAL PROTEIN 4.3 G/DL (6.4-8.3)
[2017-09-06 09:45] LABS: UREA NITROGEN (BUN) 103 mg/dL (9-23)
[2017-09-06 11:19] LABS: BASE EXCESS 6.2 mEq/L (-3 to +3); BICARBONATE 30.6 mEq/L (22-26); COMMENTS - BLOOD GASES A+C+; DEVICE VENT; FI02 100 %; METHEMOGLOBIN 1.8 % (0-1.5); PCO2 43 mm Hg (35-45); PO2 335 mm Hg (80-100); SITE L RAD; pH 7.46 (7.35-7.45)
[2017-09-06 11:20] LABS: MECHANICAL RATE 18 resp/min; MODE AC; PEEP 7 CM/H20; TIDAL VOLUME 500 ML; TOTAL RESP RATE 18 resp/min
[2017-09-07] VITALS (22 sets, daily range): BP systolic 97–140; BP diastolic 44–82
[2017-09-07 06:46] LABS: BASOPHIL (%) 0 % (0-1); EOSINOPHIL (%) 0 % (0-5); HEMATOCRIT 22.1 % (38.0-50.0); HEMOGLOBIN 7.4 G/DL (12.5-16.6); IMMATURE GRANULOCYTE (%) 1.2 % (0.0-0.7); LYMPHOCYTE (%) 1.1 % (15-42); LYMPHOCYTE COUNT 0.1 K/uL (1.0-2.8); MCH 31.4 PG (29.0-34.0); MCHC 33.5 G/DL (30.0-36.0); MCV 93.6 FL (86-99); MONOCYTE (%) 2.5 % (3-12); MONOCYTE COUNT 0.2 K/uL (0-0.8); NEUTROPHIL (%) 95.2 % (45-76); NEUTROPHIL COUNT 7.1 K/uL (1.8-6.4); NRBC (%) 0.5 /100 WBC (0-0); PLATELET COUNT 128 K/uL (156-360); RBC DIS.WIDTH-CV 17.6 % (11.8-14.6); RBC DIS.WIDTH-SD 60.9 % (39-53); RED BLOOD COUNT 2.36 M/uL (4.00-5.50); WHITE BLOOD COUNT 7.5 K/uL (4.1-10.2)
[2017-09-07 08:59] LABS: ALBUMIN 2.2 G/DL (3.2-4.8); ALKALINE PHOSPHATASE 60 IU/L (3-129); ALT (GPT) 22 IU/L (3-49); AST (GOT) 10 IU/L (2-34); CHLORIDE 106 MEQ/L (99-109); CREATININE 2.1 MG/DL (0.6-1.3); GFR ESTIMATE (CALCULATED) 34 mL/min/ (58.99-99999); GLUCOSE 236 mg/dL (70-99); MAGNESIUM 2.1 mg/dl (1.3-2.7); PHOSPHORUS 3.8 mg/dL (2.5-4.9); POTASSIUM 3.5 MEQ/L (3.7-5.4); SODIUM 141 MEQ/L (136-147); TOTAL BILIRUBIN 0.6 MG/DL (0.0-1.0); TOTAL PROTEIN 3.7 G/DL (6.4-8.3)
[2017-09-07 09:08] LABS: UREA NITROGEN (BUN) 112 mg/dL (9-23)
[2017-09-07 12:58] LABS: BASE EXCESS 2.5 mEq/L (-3 to +3); BICARBONATE 27.2 mEq/L (22-26); CARBOXY HGB 2.6 % (0-5); COMMENTS - BLOOD GASES A+C+; DEVICE 840; FI02 30 %; METHEMOGLOBIN 1.4 % (0-1.5); MODE SPONT; PCO2 42 mm Hg (35-45); PO2 73 mm Hg (80-100); SITE LR; pH 7.42 (7.35-7.45)
[2017-09-07 12:59] LABS: PEEP 5 CM/H20; PRES. SUPPORT 5 CM/H2O; TOTAL RESP RATE 28 resp/min
[2017-09-08] VITALS (12 sets, daily range): BP systolic 121–151; BP diastolic 51–77
[2017-09-08 04:56] LABS: BASOPHIL (%) 0.1 % (0-1); EOSINOPHIL (%) 0 % (0-5); HEMATOCRIT 25.2 % (38.0-50.0); HEMOGLOBIN 8.6 G/DL (12.5-16.6); IMMATURE GRANULOCYTE (%) 1.7 % (0.0-0.7); LYMPHOCYTE (%) 1.1 % (15-42); LYMPHOCYTE COUNT 0.1 K/uL (1.0-2.8); MCH 32.2 PG (29.0-34.0); MCHC 34.1 G/DL (30.0-36.0); MCV 94.4 FL (86-99); MONOCYTE (%) 1.1 % (3-12); MONOCYTE COUNT 0.1 K/uL (0-0.8); NEUTROPHIL COUNT 10.9 K/uL (1.8-6.4); NRBC (%) 0.4 /100 WBC (0-0); PLATELET COUNT 142 K/uL (156-360); RBC DIS.WIDTH-SD 62.3 % (39-53); RED BLOOD COUNT 2.67 M/uL (4.00-5.50); WHITE BLOOD COUNT 11.4 K/uL (4.1-10.2)
[2017-09-08 05:09] LABS: ALBUMIN 2.5 g/dL (3.2-4.8); CHLORIDE 106 mEq/L (99-109); POTASSIUM 3.4 mEq/L (3.7-5.4); SODIUM 141 mEq/L (136-147)
[2017-09-08 05:10] LABS: MAGNESIUM 1.9 mg/dL (1.3-2.7)
[2017-09-08 05:12] LABS: GLUCOSE 164 mg/dL (70-99); TOTAL PROTEIN 3.9 g/dL (6.4-8.3)
[2017-09-08 05:14] LABS: TOTAL BILIRUBIN 0.9 mg/dL (0.0-1.0)
[2017-09-08 05:15] LABS: PHOSPHORUS 4.3 mg/dL (2.5-4.9)
[2017-09-08 05:16] LABS: ALKALINE PHOSPHATASE 74 IU/L (3-129); CREATININE 2.1 mg/dL (0.6-1.3); GFR ESTIMATE (CALCULATED) 34 mL/min/ (58.99-99999)
[2017-09-08 05:17] LABS: AST (GOT) 18 IU/L (2-34)
[2017-09-08 05:19] LABS: ALT (GPT) 29 IU/L (3-49); UREA NITROGEN (BUN) 113 mg/dL (9-23)
[2017-09-09 00:13] VITALS: BP 151/67
[2017-09-09 03:48] VITALS: BP 125/70
[2017-09-09 06:19] LABS: HEMATOCRIT 26.8 % (38.0-50.0); HEMOGLOBIN 8.8 G/DL (12.5-16.6); MCH 31.5 PG (29.0-34.0); MCHC 32.8 G/DL (30.0-36.0); MCV 96.1 FL (86-99); NRBC (%) 0.6 /100 WBC (0-0); PLATELET COUNT 177 K/uL (156-360); RBC DIS.WIDTH-CV 18.5 % (11.8-14.6); RBC DIS.WIDTH-SD 64.7 % (39-53); RED BLOOD COUNT 2.79 M/uL (4.00-5.50); WHITE BLOOD COUNT 14.2 K/uL (4.1-10.2)
[2017-09-09 07:13] VITALS: BP 139/65
[2017-09-09 11:33] VITALS: BP 177/77
[2017-09-09 15:27] VITALS: BP 171/72
[2017-09-09 19:50] VITALS: BP 174/71
[2017-09-10] VITALS (7 sets, daily range): BP systolic 146–180; BP diastolic 65–90
[2017-09-10 07:42] LABS: BASOPHIL (%) 0.1 % (0-1); EOSINOPHIL (%) 0 % (0-5); HEMATOCRIT 25.6 % (38.0-50.0); HEMOGLOBIN 8.4 G/DL (12.5-16.6); IMMATURE GRANULOCYTE (%) 1.3 % (0.0-0.7); LYMPHOCYTE COUNT 0.1 K/uL (1.0-2.8); MCH 31.8 PG (29.0-34.0); MCHC 32.8 G/DL (30.0-36.0); MONOCYTE COUNT 0.2 K/uL (0-0.8); NEUTROPHIL (%) 95.6 % (45-76); NEUTROPHIL COUNT 11.4 K/uL (1.8-6.4); NRBC (%) 0.3 /100 WBC (0-0); PLATELET COUNT 156 K/uL (156-360); RBC DIS.WIDTH-CV 18.3 % (11.8-14.6); RED BLOOD COUNT 2.64 M/uL (4.00-5.50); WHITE BLOOD COUNT 11.9 K/uL (4.1-10.2)
[2017-09-10 08:28] LABS: CHLORIDE 107 MEQ/L (99-109); CREATININE 1.9 MG/DL (0.6-1.3); GFR ESTIMATE (CALCULATED) 38 mL/min/ (58.99-99999); GLUCOSE 138 mg/dL (70-99); POTASSIUM 3.3 MEQ/L (3.7-5.4); SODIUM 144 MEQ/L (136-147)
[2017-09-10 08:29] LABS: UREA NITROGEN (BUN) 106 mg/dL (9-23)
[2017-09-11 03:36] VITALS: BP 162/72
[2017-09-11 08:30] VITALS: BP 173/74
[2017-09-11 15:50] VITALS: BP 152/69
[2017-09-11 19:30] VITALS: BP 179/88
[2017-09-11 23:03] VITALS: BP 164/68
[2017-09-12] VITALS (13 sets, daily range): BP systolic 106–163; BP diastolic 56–67
[2017-09-12 07:07] LABS: ALBUMIN 2.4 G/DL (3.2-4.8); CHLORIDE 110 MEQ/L (99-109); GFR ESTIMATE (CALCULATED) 36 mL/min/ (58.99-99999); GLUCOSE 117 mg/dL (70-99); PHOSPHORUS 4.2 mg/dL (2.5-4.9); POTASSIUM 3.7 MEQ/L (3.7-5.4); SODIUM 145 MEQ/L (136-147); UREA NITROGEN (BUN) 112 mg/dL (9-23)
[2017-09-12 09:34] LABS: BASOPHIL (%) 0.1 % (0-1); EOSINOPHIL (%) 0 % (0-5); HEMATOCRIT 23.8 % (38.0-50.0); HEMOGLOBIN 7.8 G/DL (12.5-16.6); IMMATURE GRANULOCYTE (%) 1.1 % (0.0-0.7); LYMPHOCYTE (%) 1.5 % (15-42); LYMPHOCYTE COUNT 0.1 K/uL (1.0-2.8); MCH 32.6 PG (29.0-34.0); MCHC 32.8 G/DL (30.0-36.0); MCV 99.6 FL (86-99); MONOCYTE (%) 2.3 % (3-12); MONOCYTE COUNT 0.2 K/uL (0-0.8); NEUTROPHIL COUNT 7.9 K/uL (1.8-6.4); NRBC (%) 0.6 /100 WBC (0-0); PLATELET COUNT 115 K/uL (156-360); RBC DIS.WIDTH-CV 17.4 % (11.8-14.6); RBC DIS.WIDTH-SD 63.1 % (39-53); RED BLOOD COUNT 2.39 M/uL (4.00-5.50); WHITE BLOOD COUNT 8.3 K/uL (4.1-10.2)
[2017-09-12 09:58] LABS: BASOPHIL (%) 0.1 % (0-1); EOSINOPHIL (%) 0 % (0-5); HEMOGLOBIN 7.9 G/DL (12.5-16.6); LYMPHOCYTE (%) 1.4 % (15-42); LYMPHOCYTE COUNT 0.1 K/uL (1.0-2.8); MCH 32.6 PG (29.0-34.0); MCHC 32.9 G/DL (30.0-36.0); MCV 99.2 FL (86-99); MONOCYTE (%) 2.2 % (3-12); MONOCYTE COUNT 0.2 K/uL (0-0.8); NEUTROPHIL (%) 95.3 % (45-76); NEUTROPHIL COUNT 7.9 K/uL (1.8-6.4); NRBC (%) 0.6 /100 WBC (0-0); PLATELET COUNT 119 K/uL (156-360); RBC DIS.WIDTH-CV 17.5 % (11.8-14.6); RBC DIS.WIDTH-SD 64.2 % (39-53); RED BLOOD COUNT 2.42 M/uL (4.00-5.50); WHITE BLOOD COUNT 8.3 K/uL (4.1-10.2)
[2017-09-12 11:55] LABS: BASE EXCESS 4.6 mEq/L (-3 to +3); BICARBONATE 29.8 mEq/L (22-26); CARBOXY HGB 2.3 % (0-5); COMMENTS - BLOOD GASES A+C+; METHEMOGLOBIN 1.3 % (0-1.5); PCO2 47 mm Hg (35-45); PO2 76 mm Hg (80-100); SITE LR; pH 7.41 (7.35-7.45)
[2017-09-12 11:56] LABS: DEVICE NC; O2 FLOW 2 L/MIN; TOTAL RESP RATE 26 resp/min
[2017-09-13] VITALS (8 sets, daily range): BP systolic 116–142; BP diastolic 55–76
[2017-09-13 05:47] LABS: BASOPHIL (%) 0.2 % (0-1); EOSINOPHIL (%) 0.1 % (0-5); HEMATOCRIT 31.5 % (38.0-50.0); IMMATURE GRANULOCYTE (%) 0.9 % (0.0-0.7); LYMPHOCYTE (%) 1.1 % (15-42); LYMPHOCYTE COUNT 0.1 K/uL (1.0-2.8); MCH 32.3 PG (29.0-34.0); MCHC 34.9 G/DL (30.0-36.0); MONOCYTE (%) 2.3 % (3-12); MONOCYTE COUNT 0.2 K/uL (0-0.8); NEUTROPHIL (%) 95.4 % (45-76); NEUTROPHIL COUNT 9.6 K/uL (1.8-6.4); NRBC (%) 1.1 /100 WBC (0-0); PLATELET COUNT 137 K/uL (156-360); RBC DIS.WIDTH-CV 18.7 % (11.8-14.6); RBC DIS.WIDTH-SD 62.3 % (39-53); WHITE BLOOD COUNT 10.1 K/uL (4.1-10.2)
[2017-09-13 05:49] LABS: MCV 92.4 FL (86-99); RED BLOOD COUNT 3.41 M/uL (4.00-5.50)
[2017-09-13 12:06] LABS: BASE EXCESS 3.7 mEq/L (-3 to +3); BICARBONATE 28.5 mEq/L (22-26); CARBOXY HGB 2.9 % (0-5); METHEMOGLOBIN 1.5 % (0-1.5); PCO2 43 mm Hg (35-45); PO2 55 mm Hg (80-100); SITE LR; pH 7.43 (7.35-7.45)
[2017-09-13 12:07] LABS: COMMENTS - BLOOD GASES A+C+
[2017-09-13 12:19] LABS: HEMATOCRIT 31.7 % (38.0-50.0); MCH 32.2 PG (29.0-34.0); MCHC 34.7 G/DL (30.0-36.0); MCV 92.7 FL (86-99); NRBC (%) 1.4 /100 WBC (0-0); PLATELET COUNT 106 K/uL (156-360); RBC DIS.WIDTH-SD 63.3 % (39-53); RED BLOOD COUNT 3.42 M/uL (4.00-5.50); WHITE BLOOD COUNT 10.9 K/uL (4.1-10.2)
[2017-09-13 12:31] LABS: CHLORIDE 107 mEq/L (99-109); POTASSIUM 3.6 mEq/L (3.7-5.4); SODIUM 142 mEq/L (136-147)
[2017-09-13 12:32] LABS: MAGNESIUM 2.1 mg/dL (1.3-2.7)
[2017-09-13 12:33] LABS: GLUCOSE 139 mg/dL (70-99)
[2017-09-13 12:37] LABS: GFR ESTIMATE (CALCULATED) 36 mL/min/ (58.99-99999)
[2017-09-13 12:39] LABS: UREA NITROGEN (BUN) 126 mg/dL (9-23)
[2017-09-13 12:41] LABS: TROP-I INTERPRETATION NEGATIVE; TROPONIN-I 0.13 ng/mL (0.0-0.30)
[2017-09-14 03:03] VITALS: BP 121/58
[2017-09-14 05:43] LABS: BASOPHIL (%) 0.1 % (0-1); EOSINOPHIL (%) 0 % (0-5); HEMATOCRIT 31.2 % (38.0-50.0); HEMOGLOBIN 10.4 G/DL (12.5-16.6); IMMATURE GRANULOCYTE (%) 1.4 % (0.0-0.7); LYMPHOCYTE (%) 1.3 % (15-42); LYMPHOCYTE COUNT 0.1 K/uL (1.0-2.8); MCH 31.3 PG (29.0-34.0); MCHC 33.3 G/DL (30.0-36.0); MONOCYTE (%) 1.7 % (3-12); MONOCYTE COUNT 0.2 K/uL (0-0.8); NEUTROPHIL (%) 95.5 % (45-76); NEUTROPHIL COUNT 9.8 K/uL (1.8-6.4); NRBC (%) 0.9 /100 WBC (0-0); PLATELET COUNT 111 K/uL (156-360); RBC DIS.WIDTH-SD 63.9 % (39-53); RED BLOOD COUNT 3.32 M/uL (4.00-5.50); WHITE BLOOD COUNT 10.2 K/uL (4.1-10.2)
[2017-09-14 06:21] LABS: CHLORIDE 106 MEQ/L (99-109); GFR ESTIMATE (CALCULATED) 36 mL/min/ (58.99-99999); GLUCOSE 122 mg/dL (70-99); POTASSIUM 3.9 MEQ/L (3.7-5.4); SODIUM 144 MEQ/L (136-147)
[2017-09-14 06:25] LABS: UREA NITROGEN (BUN) 117 mg/dL (9-23)
[2017-09-14 08:47] VITALS: BP 132/61
[2017-09-14 11:46] VITALS: BP 129/60
[2017-09-14 15:13] VITALS: BP 149/65
[2017-09-14 19:15] VITALS: BP 140/59
[2017-09-15] VITALS (25 sets, daily range): BP systolic 86–126; BP diastolic 46–79
[2017-09-15 01:13] LABS: CARBOXY HGB 2.5 % (0-5); DEVICE NC; METHEMOGLOBIN 1.6 % (0-1.5); O2 FLOW 3.5 L/MIN; PCO2 89 mm Hg (35-45); PO2 62 mm Hg (80-100); SITE LR; TOTAL RESP RATE 12 resp/min; pH 7.19 (7.35-7.45)
[2017-09-15 01:15] LABS: COMMENTS - BLOOD GASES C+
[2017-09-15 02:34] LABS: BASOPHIL (%) 0.1 % (0-1); EOSINOPHIL (%) 0 % (0-5); HEMATOCRIT 26.2 % (38.0-50.0); HEMOGLOBIN 8.7 G/DL (12.5-16.6); IMMATURE GRANULOCYTE (%) 1.8 % (0.0-0.7); LYMPHOCYTE (%) 0.4 % (15-42); MCH 31.6 PG (29.0-34.0); MCHC 33.2 G/DL (30.0-36.0); MCV 95.3 FL (86-99); MONOCYTE COUNT 0.2 K/uL (0-0.8); NEUTROPHIL (%) 95.7 % (45-76); NEUTROPHIL COUNT 7.4 K/uL (1.8-6.4); PLATELET COUNT 106 K/uL (156-360); RBC DIS.WIDTH-CV 18.6 % (11.8-14.6); RBC DIS.WIDTH-SD 63.6 % (39-53); RED BLOOD COUNT 2.75 M/uL (4.00-5.50); WHITE BLOOD COUNT 7.7 K/uL (4.1-10.2)
[2017-09-15 02:42] LABS: CHLORIDE 105 mEq/L (99-109); MAGNESIUM 2.1 mg/dL (1.3-2.7); POTASSIUM 3.7 mEq/L (3.7-5.4); SODIUM 145 mEq/L (136-147)
[2017-09-15 02:44] LABS: GLUCOSE 178 mg/dL (70-99); TOTAL PROTEIN 4.1 g/dL (6.4-8.3)
[2017-09-15 02:46] LABS: TOTAL BILIRUBIN 0.5 mg/dL (0.0-1.0)
[2017-09-15 02:48] LABS: ALKALINE PHOSPHATASE 68 IU/L (3-129); CREATININE 2.2 mg/dL (0.6-1.3); GFR ESTIMATE (CALCULATED) 32 mL/min/ (58.99-99999); PHOSPHORUS 4.8 mg/dL (2.5-4.9)
[2017-09-15 02:50] LABS: AST (GOT) 12 IU/L (2-34)
[2017-09-15 02:51] LABS: ALT (GPT) 30 IU/L (3-49)
[2017-09-15 02:52] LABS: BASE EXCESS 4.3 mEq/L (-3 to +3); BICARBONATE 31.4 mEq/L (22-26); COMMENTS - BLOOD GASES C+; DEVICE VENT; FI02 60 %; INSPIRATION TIME 1.1 seconds; MECHANICAL RATE 16 resp/min; METHEMOGLOBIN 1.6 % (0-1.5); MODE ACVC+; PCO2 61 mm Hg (35-45); PEEP 5 CM/H20; PO2 176 mm Hg (80-100); SITE RR; TIDAL VOLUME 400 ML; TOTAL RESP RATE 16 resp/min; pH 7.32 (7.35-7.45)
[2017-09-15 02:54] LABS: TROP-I INTERPRETATION NEGATIVE; TROPONIN-I 0.09 ng/mL (0.0-0.30); UREA NITROGEN (BUN) 136 mg/dL (9-23)
[2017-09-15 04:05] LABS: BASOPHIL (%) 0.1 % (0-1); EOSINOPHIL (%) 0 % (0-5); HEMATOCRIT 27.1 % (38.0-50.0); HEMOGLOBIN 9.2 G/DL (12.5-16.6); IMMATURE GRANULOCYTE (%) 1.4 % (0.0-0.7); LYMPHOCYTE (%) 0.5 % (15-42); MCH 32.2 PG (29.0-34.0); MCHC 33.9 G/DL (30.0-36.0); MCV 94.8 FL (86-99); MONOCYTE (%) 2.1 % (3-12); MONOCYTE COUNT 0.2 K/uL (0-0.8); NEUTROPHIL (%) 95.9 % (45-76); NEUTROPHIL COUNT 7.8 K/uL (1.8-6.4); NRBC (%) 1.1 /100 WBC (0-0); RBC DIS.WIDTH-CV 18.6 % (11.8-14.6); RBC DIS.WIDTH-SD 62.7 % (39-53); RED BLOOD COUNT 2.86 M/uL (4.00-5.50); WHITE BLOOD COUNT 8.1 K/uL (4.1-10.2)
[2017-09-15 04:15] LABS: CHLORIDE 105 mEq/L (99-109); POTASSIUM 3.6 mEq/L (3.7-5.4); SODIUM 145 mEq/L (136-147)
[2017-09-15 04:16] LABS: MAGNESIUM 2.1 mg/dL (1.3-2.7)
[2017-09-15 04:17] LABS: GLUCOSE 164 mg/dL (70-99)
[2017-09-15 04:21] LABS: CREATININE 2.1 mg/dL (0.6-1.3); GFR ESTIMATE (CALCULATED) 34 mL/min/ (58.99-99999); PHOSPHORUS 4.3 mg/dL (2.5-4.9)
[2017-09-15 04:23] LABS: UREA NITROGEN (BUN) 134 mg/dL (9-23)
[2017-09-15 05:08] LABS: PLAT.SUFFICIENCY DECREASED; PLATELET COUNT 91 K/uL (156-360)
[2017-09-15 05:53] LABS: BASE EXCESS 6.6 mEq/L (-3 to +3); BICARBONATE 31.3 mEq/L (22-26); CARBOXY HGB 2.3 % (0-5); METHEMOGLOBIN 1.5 % (0-1.5)
[2017-09-15 05:54] LABS: COMMENTS - BLOOD GASES C+; DEVICE VENT; FI02 30 %; INSPIRATION TIME 1.1 seconds; MECHANICAL RATE 19 resp/min; MODE ACVC+; PCO2 45 mm Hg (35-45); PEEP 5 CM/H20; PO2 70 mm Hg (80-100); SITE LR; TIDAL VOLUME 400 ML; TOTAL RESP RATE 19 resp/min; pH 7.45 (7.35-7.45)
[2017-09-16] VITALS (22 sets, daily range): BP systolic 97–131; BP diastolic 42–65
[2017-09-16 07:17] LABS: BASOPHIL (%) 0.1 % (0-1); EOSINOPHIL (%) 0 % (0-5); HEMATOCRIT 26.1 % (38.0-50.0); HEMOGLOBIN 8.8 G/DL (12.5-16.6); IMMATURE GRANULOCYTE (%) 1.8 % (0.0-0.7); LYMPHOCYTE (%) 0.5 % (15-42); MCH 31.9 PG (29.0-34.0); MCHC 33.7 G/DL (30.0-36.0); MCV 94.6 FL (86-99); MONOCYTE (%) 1.8 % (3-12); MONOCYTE COUNT 0.2 K/uL (0-0.8); NEUTROPHIL (%) 95.8 % (45-76); NEUTROPHIL COUNT 7.9 K/uL (1.8-6.4); PLATELET COUNT 99 K/uL (156-360); RBC DIS.WIDTH-CV 19.5 % (11.8-14.6); RBC DIS.WIDTH-SD 64.3 % (39-53); RED BLOOD COUNT 2.76 M/uL (4.00-5.50); WHITE BLOOD COUNT 8.2 K/uL (4.1-10.2)
[2017-09-16 07:28] LABS: CHLORIDE 103 MEQ/L (99-109); CREATININE 2.1 MG/DL (0.6-1.3); GFR ESTIMATE (CALCULATED) 34 mL/min/ (58.99-99999); MAGNESIUM 2.1 mg/dl (1.3-2.7); PHOSPHORUS 3.4 mg/dL (2.5-4.9); SODIUM 147 MEQ/L (136-147)
[2017-09-16 07:29] LABS: GLUCOSE 118 mg/dL (70-99); POTASSIUM 2.7 MEQ/L (3.7-5.4); UREA NITROGEN (BUN) 106 mg/dL (9-23)
[2017-09-16 08:35] LABS: VANCOMYCIN, TROUGH 21.5 MCG/ML (10-20)
[2017-09-16 13:59] LABS: Heparin Induced Plt Ab Negative (Negative)
[2017-09-16 15:25] LABS: UFH SRA Result Negative (Negative)
[2017-09-16 15:48] LABS: CHLORIDE 102 MEQ/L (99-109); GFR ESTIMATE (CALCULATED) 36 mL/min/ (58.99-99999); GLUCOSE 106 mg/dL (70-99); POTASSIUM 2.8 MEQ/L (3.7-5.4); SODIUM 149 MEQ/L (136-147); UREA NITROGEN (BUN) 100 mg/dL (9-23)
[2017-09-17] VITALS (17 sets, daily range): BP systolic 98–127; BP diastolic 50–66
[2017-09-17 04:59] LABS: HEMATOCRIT 25.8 % (38.0-50.0); HEMOGLOBIN 8.6 G/DL (12.5-16.6); MCH 32.3 PG (29.0-34.0); MCHC 33.3 G/DL (30.0-36.0); NRBC (%) 0.6 /100 WBC (0-0); PLATELET COUNT 94 K/uL (156-360); RBC DIS.WIDTH-CV 20.4 % (11.8-14.6); RBC DIS.WIDTH-SD 70.7 % (39-53); RED BLOOD COUNT 2.66 M/uL (4.00-5.50); WHITE BLOOD COUNT 6.8 K/uL (4.1-10.2)
[2017-09-17 05:01] LABS: BASOPHIL (%) 0 % (0-1); EOSINOPHIL (%) 0 % (0-5); IMMATURE GRANULOCYTE (%) 2.1 % (0.0-0.7); LYMPHOCYTE (%) 0.7 % (15-42); LYMPHOCYTE COUNT 0.1 K/uL (1.0-2.8); MONOCYTE (%) 1.8 % (3-12); MONOCYTE COUNT 0.1 K/uL (0-0.8); NEUTROPHIL (%) 95.4 % (45-76); NEUTROPHIL COUNT 6.5 K/uL (1.8-6.4)
[2017-09-17 05:11] LABS: CHLORIDE 105 mEq/L (99-109); POTASSIUM 3.5 mEq/L (3.7-5.4); SODIUM 149 mEq/L (136-147)
[2017-09-17 05:14] LABS: GLUCOSE 186 mg/dL (70-99)
[2017-09-17 05:17] LABS: CREATININE 1.9 mg/dL (0.6-1.3); GFR ESTIMATE (CALCULATED) 38 mL/min/ (58.99-99999)
[2017-09-17 05:24] LABS: UREA NITROGEN (BUN) 103 mg/dL (9-23)
[2017-09-18] VITALS (22 sets, daily range): BP systolic 99–128; BP diastolic 50–73
[2017-09-18 05:35] LABS: BASOPHIL (%) 0 % (0-1); EOSINOPHIL (%) 0 % (0-5); HEMATOCRIT 25.8 % (38.0-50.0); HEMOGLOBIN 8.1 G/DL (12.5-16.6); IMMATURE GRANULOCYTE (%) 2.5 % (0.0-0.7); LYMPHOCYTE (%) 0.8 % (15-42); LYMPHOCYTE COUNT 0.1 K/uL (1.0-2.8); MCH 31.4 PG (29.0-34.0); MCHC 31.4 G/DL (30.0-36.0); MONOCYTE (%) 1.8 % (3-12); MONOCYTE COUNT 0.1 K/uL (0-0.8); NEUTROPHIL (%) 94.9 % (45-76); NEUTROPHIL COUNT 5.7 K/uL (1.8-6.4); NRBC (%) 0.5 /100 WBC (0-0); PLATELET COUNT 88 K/uL (156-360); RBC DIS.WIDTH-CV 20.4 % (11.8-14.6); RBC DIS.WIDTH-SD 72.9 % (39-53); RED BLOOD COUNT 2.58 M/uL (4.00-5.50)
[2017-09-18 05:56] LABS: CHLORIDE 104 MEQ/L (99-109); CREATININE 1.7 MG/DL (0.6-1.3); GFR ESTIMATE (CALCULATED) 43 mL/min/ (58.99-99999); GLUCOSE 310 mg/dL (70-99); MAGNESIUM 2.1 mg/dl (1.3-2.7); PHOSPHORUS 2.6 mg/dL (2.5-4.9); POTASSIUM 3.2 MEQ/L (3.7-5.4); SODIUM 152 MEQ/L (136-147); UREA NITROGEN (BUN) 79 mg/dL (9-23)
[2017-09-19] VITALS (22 sets, daily range): BP systolic 77–130; BP diastolic 48–69
[2017-09-19 05:55] LABS: BASOPHIL (%) 0 % (0-1); EOSINOPHIL (%) 0 % (0-5); HEMATOCRIT 27.6 % (38.0-50.0); HEMOGLOBIN 8.5 G/DL (12.5-16.6); IMMATURE GRANULOCYTE (%) 2.1 % (0.0-0.7); LYMPHOCYTE (%) 0.9 % (15-42); LYMPHOCYTE COUNT 0.1 K/uL (1.0-2.8); MCH 31.4 PG (29.0-34.0); MCHC 30.8 G/DL (30.0-36.0); MCV 101.8 FL (86-99); MONOCYTE (%) 1.3 % (3-12); MONOCYTE COUNT 0.1 K/uL (0-0.8); NEUTROPHIL (%) 95.7 % (45-76); NRBC (%) 0.4 /100 WBC (0-0); PLATELET COUNT 71 K/uL (156-360); RBC DIS.WIDTH-SD 74.9 % (39-53); RED BLOOD COUNT 2.71 M/uL (4.00-5.50); WHITE BLOOD COUNT 5.3 K/uL (4.1-10.2)
[2017-09-19 06:33] LABS: CHLORIDE 103 MEQ/L (99-109); CREATININE 1.6 MG/DL (0.6-1.3); GFR ESTIMATE (CALCULATED) 46 mL/min/ (58.99-99999); PHOSPHORUS 3.2 mg/dL (2.5-4.9); POTASSIUM 3.5 MEQ/L (3.7-5.4); SODIUM 150 MEQ/L (136-147); UREA NITROGEN (BUN) 80 mg/dL (9-23)
[2017-09-19 06:42] LABS: GLUCOSE 93 mg/dL (70-99)
[2017-09-19] MEDS ORDERED: ATENOLOL50 MG PO (15:22)
[2017-09-19 19:20] LABS: GLUCOSE 394 mg/dL (70-99)
[2017-09-20] VITALS (21 sets, daily range): BP systolic 79–125; BP diastolic 46–83
[2017-09-20 05:39] LABS: CHLORIDE 98 mEq/L (99-109); SODIUM 145 mEq/L (136-147)
[2017-09-20 05:40] LABS: MAGNESIUM 2.1 mg/dL (1.3-2.7)
[2017-09-20 05:41] LABS: GLUCOSE 290 mg/dL (70-99); POTASSIUM 4.4 mEq/L (3.7-5.4)
[2017-09-20 05:45] LABS: CREATININE 1.8 mg/dL (0.6-1.3); GFR ESTIMATE (CALCULATED) 40 mL/min/ (58.99-99999); PHOSPHORUS 2.8 mg/dL (2.5-4.9)
[2017-09-20 05:46] LABS: UREA NITROGEN (BUN) 95 mg/dL (9-23)
[2017-09-20 05:58] LABS: HEMATOCRIT 25.3 % (38.0-50.0); HEMOGLOBIN 8.2 G/DL (12.5-16.6); MCH 32.5 PG (29.0-34.0); MCHC 32.4 G/DL (30.0-36.0); MCV 100.4 FL (86-99); PLATELET COUNT 57 K/uL (156-360); RBC DIS.WIDTH-CV 19.5 % (11.8-14.6); RBC DIS.WIDTH-SD 71.6 % (39-53); RED BLOOD COUNT 2.52 M/uL (4.00-5.50); WHITE BLOOD COUNT 4.2 K/uL (4.1-10.2)
[2017-09-20 08:10] LABS: ABS NEUTROPHIL COUNT 4.1; ANISOCYTOSIS 2+; ATYPICAL LYMPHOCYTE 0.9 %; BAND NEUTROPHILS 2.7 % (0-8.0); EOSINOPHIL ABS CT 0; MACROCYTES 1+; MONOCYTES 0.9 % (0-9.0); PLAT.SUFFICIENCY DECREASED; POIKILOCYTOSIS 1+; POLYCHROMASIA 1+; SEG.NEUTROPHILS 95.5 % (46.0-76.0); TEAR DROP CELLS 1+
[2017-09-21] VITALS (9 sets, daily range): BP systolic 108–128; BP diastolic 50–70
[2017-09-21 05:08] LABS: HEMATOCRIT 23.9 % (38.0-50.0); MCH 33.2 PG (29.0-34.0); MCHC 33.5 G/DL (30.0-36.0); MCV 99.2 FL (86-99); NRBC (%) 0.5 /100 WBC (0-0); PLATELET COUNT 55 K/uL (156-360); RBC DIS.WIDTH-CV 18.8 % (11.8-14.6); RBC DIS.WIDTH-SD 69.2 % (39-53); RED BLOOD COUNT 2.41 M/uL (4.00-5.50); WHITE BLOOD COUNT 3.7 K/uL (4.1-10.2)
[2017-09-21 05:23] LABS: CHLORIDE 97 mEq/L (99-109); POTASSIUM 4.3 mEq/L (3.7-5.4)
[2017-09-21 05:24] LABS: SODIUM 142 mEq/L (136-147)
[2017-09-21 05:26] LABS: GLUCOSE 260 mg/dL (70-99); TOTAL PROTEIN 4.6 g/dL (6.4-8.3)
[2017-09-21 05:29] LABS: ALKALINE PHOSPHATASE 47 IU/L (3-129)
[2017-09-21 05:30] LABS: CREATININE 1.6 mg/dL (0.6-1.3); GFR ESTIMATE (CALCULATED) 46 mL/min/ (58.99-99999); TOTAL BILIRUBIN 1.3 mg/dL (0.0-1.0)
[2017-09-21 05:31] LABS: AST (GOT) 11 IU/L (2-34)
[2017-09-21 05:32] LABS: ALT (GPT) 32 IU/L (3-49)
[2017-09-21 05:35] LABS: UREA NITROGEN (BUN) 110 mg/dL (9-23)
[2017-09-21 06:15] LABS: ABS NEUTROPHIL COUNT 3.7; ANISOCYTOSIS 1+; BASOPH.STIPPLING 1+; EOSINOPHIL ABS CT 0; HELMET CELLS 1+; HYPOCHROMASIA 2+; LYMPHOCYTES 0.9 % (15.0-45.0); MICROCYTOSIS 1+; PLAT.SUFFICIENCY DECREASED; POIKILOCYTOSIS 1+; POLYCHROMASIA 2+; SEG.NEUTROPHILS 99.1 % (46.0-76.0); TEAR DROP CELLS 1+
[2017-09-21 11:35] LABS: STOOL OCCULT BLD 1ST SPECIMEN POSITIVE
[2017-09-21 13:08] LABS: Heparin Induced Plt Ab Negative (Negative)
[2017-09-21 14:12] LABS: UFH SRA Result Negative (Negative)
[2017-09-21 14:49] LABS: TROP-I INTERPRETATION NEGATIVE; TROPONIN-I 0.23 ng/mL (0.0-0.30)
[2017-09-22 04:26] VITALS: BP 115/54
[2017-09-22 05:39] LABS: HEMATOCRIT 24.9 % (38.0-50.0); HEMOGLOBIN 8.4 G/DL (12.5-16.6); MCH 33.6 PG (29.0-34.0); MCHC 33.7 G/DL (30.0-36.0); MCV 99.6 FL (86-99); NRBC (%) 0.7 /100 WBC (0-0); PLATELET COUNT 52 K/uL (156-360); RBC DIS.WIDTH-CV 19.1 % (11.8-14.6); RBC DIS.WIDTH-SD 69.8 % (39-53); WHITE BLOOD COUNT 2.9 K/uL (4.1-10.2)
[2017-09-22 06:30] LABS: CHLORIDE 99 MEQ/L (99-109); CREATININE 1.4 MG/DL (0.6-1.3); GFR ESTIMATE (CALCULATED) 54 mL/min/ (58.99-99999); GLUCOSE 167 mg/dL (70-99); MAGNESIUM 2.1 mg/dl (1.3-2.7); PHOSPHORUS 2.1 mg/dL (2.5-4.9); POTASSIUM 4.5 MEQ/L (3.7-5.4); SODIUM 142 MEQ/L (136-147)
[2017-09-22 06:36] LABS: UREA NITROGEN (BUN) 102 mg/dL (9-23)
[2017-09-22 07:20] VITALS: BP 108/67
[2017-09-22 11:41] VITALS: BP 125/68
[2017-09-22 11:51] LABS: ABS NEUTROPHIL COUNT 2.8; ANISOCYTOSIS 2+; ATYPICAL LYMPHOCYTE 1.7 %; BAND NEUTROPHILS 0.9 % (0-8.0); BASOPH.STIPPLING 1+; EOSINOPHIL ABS CT 0; LYMPHOCYTES 0.9 % (15.0-45.0); MACROCYTES 2+; MONOCYTES 1.7 % (0-9.0); NUCLEATED RBC'S 0.9; PLAT.SUFFICIENCY DECREASED; SEG.NEUTROPHILS 94.8 % (46.0-76.0); TEAR DROP CELLS 1+; TOXIC GRANULATION 2+
[2017-09-22 16:43] VITALS: BP 119/68
[2017-09-22 19:49] VITALS: BP 109/54
[2017-09-22 23:17] VITALS: BP 117/54
[2017-09-23 04:00] VITALS: BP 144/58
[2017-09-23 05:42] LABS: CHLORIDE 100 mEq/L (99-109); POTASSIUM 4.7 mEq/L (3.7-5.4); SODIUM 145 mEq/L (136-147)
[2017-09-23 05:43] LABS: MAGNESIUM 2.2 mg/dL (1.3-2.7)
[2017-09-23 05:44] LABS: GLUCOSE 134 mg/dL (70-99)
[2017-09-23 05:48] LABS: CREATININE 1.6 mg/dL (0.6-1.3); GFR ESTIMATE (CALCULATED) 46 mL/min/ (58.99-99999); PHOSPHORUS 2.5 mg/dL (2.5-4.9)
[2017-09-23 05:51] LABS: UREA NITROGEN (BUN) 122 mg/dL (9-23)
[2017-09-23 07:01] VITALS: BP 127/65
[2017-09-23 07:18] LABS: HEMATOCRIT 26.5 % (38.0-50.0); HEMOGLOBIN 8.8 G/DL (12.5-16.6); MCH 33.3 PG (29.0-34.0); MCHC 33.2 G/DL (30.0-36.0); MCV 100.4 FL (86-99); RBC DIS.WIDTH-CV 19.7 % (11.8-14.6); RBC DIS.WIDTH-SD 72.3 % (39-53); RED BLOOD COUNT 2.64 M/uL (4.00-5.50); WHITE BLOOD COUNT 2.6 K/uL (4.1-10.2)
[2017-09-23 07:51] LABS: IMM.PLATELET FRACTION 2.6 (1-7); PLAT.SUFFICIENCY DECREASED; PLATELET COUNT 47 K/uL (156-360)
[2017-09-23 08:46] LABS: ABS NEUTROPHIL COUNT 2.4; ANISOCYTOSIS 1+; EOSINOPHIL ABS CT 0; LYMPHOCYTES 8.8 % (15.0-45.0); MACROCYTES 2+; NUCLEATED RBC'S 1.8; POLYCHROMASIA 3+; SEG.NEUTROPHILS 91.2 % (46.0-76.0)
[2017-09-23 11:20] VITALS: BP 117/57
[2017-09-23 15:58] VITALS: BP 115/51
[2017-09-23 19:10] VITALS: BP 115/59
[2017-09-24] VITALS (7 sets, daily range): BP systolic 106–143; BP diastolic 56–81
[2017-09-24 09:39] LABS: CHLORIDE 101 MEQ/L (99-109); CREATININE 1.8 MG/DL (0.6-1.3); GFR ESTIMATE (CALCULATED) 40 mL/min/ (58.99-99999); GLUCOSE 186 mg/dL (70-99); POTASSIUM 4.3 MEQ/L (3.7-5.4); SODIUM 144 MEQ/L (136-147)
[2017-09-24 09:54] LABS: UREA NITROGEN (BUN) 117 mg/dL (9-23)
[2017-09-25 03:09] VITALS: BP 120/58
[2017-09-25 08:09] VITALS: BP 129/73
[2017-09-25 11:48] LABS: BASE EXCESS 11.4 mEq/L (-3 to +3); BICARBONATE 36.4 mEq/L (22-26); CARBOXY HGB 4.9 % (0-5); METHEMOGLOBIN 1.3 % (0-1.5); PCO2 50 mm Hg (35-45); PO2 73 mm Hg (80-100); SITE RR; pH 7.47 (7.35-7.45)
[2017-09-25 11:50] LABS: O2 FLOW 2 L/MIN
[2017-09-25 11:51] LABS: DEVICE CANNULA
[2017-09-25 12:13] VITALS: BP 168/89
[2017-09-25 15:35] LABS: CHLORIDE 101 MEQ/L (99-109); CREATININE 1.9 MG/DL (0.6-1.3); GFR ESTIMATE (CALCULATED) 38 mL/min/ (58.99-99999); GLUCOSE 77 mg/dL (70-99); POTASSIUM 5.2 MEQ/L (3.7-5.4); SODIUM 142 MEQ/L (136-147); UREA NITROGEN (BUN) 146 mg/dL (9-23)
[2017-09-25 16:40] VITALS: BP 140/96
[2017-09-25 19:02] VITALS: BP 117/65
[2017-09-26] VITALS (19 sets, daily range): BP systolic 106–167; BP diastolic 59–99
[2017-09-26 05:44] LABS: HEMATOCRIT 27.2 % (38.0-50.0); HEMOGLOBIN 8.8 G/DL (12.5-16.6); MCHC 32.4 G/DL (30.0-36.0); MCV 101.9 FL (86-99); RBC DIS.WIDTH-CV 19.6 % (11.8-14.6); RBC DIS.WIDTH-SD 72.7 % (39-53); RED BLOOD COUNT 2.67 M/uL (4.00-5.50)
[2017-09-26 05:54] LABS: ALBUMIN 3.3 G/DL (3.2-4.8); CHLORIDE 101 MEQ/L (99-109); GFR ESTIMATE (CALCULATED) 36 mL/min/ (58.99-99999); GLUCOSE 82 mg/dL (70-99); POTASSIUM 5.4 MEQ/L (3.7-5.4); SODIUM 143 MEQ/L (136-147)
[2017-09-26 05:55] LABS: PHOSPHORUS 6.1 mg/dL (2.5-4.9)
[2017-09-26 06:10] LABS: WHITE BLOOD COUNT 1.1 K/uL (4.1-10.2)
[2017-09-26 06:12] LABS: UREA NITROGEN (BUN) 149 mg/dL (9-23)
[2017-09-26 07:12] LABS: BASE EXCESS 6.5 mEq/L (-3 to +3); BICARBONATE 33.3 mEq/L (22-26); CARBOXY HGB 3.2 % (0-5); METHEMOGLOBIN 1.2 % (0-1.5); PO2 67 mm Hg (80-100)
[2017-09-26 07:13] LABS: COMMENTS - BLOOD GASES +C; DEVICE NC; O2 FLOW 2 L/MIN; PCO2 59 mm Hg (35-45); SITE RR +A; TOTAL RESP RATE 54 resp/min; pH 7.36 (7.35-7.45)
[2017-09-26 08:08] LABS: PLAT.SUFFICIENCY DECREASED; PLATELET COUNT 45 K/uL (156-360)
[2017-09-26 19:43] LABS: BASE EXCESS 6.6 mEq/L (-3 to +3); BICARBONATE 32.3 mEq/L (22-26); CARBOXY HGB 3.6 % (0-5); METHEMOGLOBIN 1.6 % (0-1.5); PO2 57 mm Hg (80-100); pH 7.41 (7.35-7.45)
[2017-09-26 19:44] LABS: COMMENTS - BLOOD GASES A+C+; DEVICE NC; O2 FLOW 3 L/MIN; PCO2 51 mm Hg (35-45); SITE RR
[2017-09-27] VITALS (25 sets, daily range): BP systolic 66–141; BP diastolic 36–84
[2017-09-27 06:38] LABS: HEMATOCRIT 28.1 % (38.0-50.0); HEMOGLOBIN 9.4 G/DL (12.5-16.6); MCH 33.7 PG (29.0-34.0); MCHC 33.5 G/DL (30.0-36.0); MCV 100.7 FL (86-99); NRBC (%) 1.8 /100 WBC (0-0); PLATELET COUNT 55 K/uL (156-360); RBC DIS.WIDTH-CV 19.8 % (11.8-14.6); RBC DIS.WIDTH-SD 72.4 % (39-53); RED BLOOD COUNT 2.79 M/uL (4.00-5.50)
[2017-09-27 06:39] LABS: WHITE BLOOD COUNT 1.7 K/uL (4.1-10.2)
[2017-09-27 07:00] LABS: ABS NEUTROPHIL COUNT 1.4; ANISOCYTOSIS 1+; BAND NEUTROPHILS 3.5 % (0-8.0); BASOPH.STIPPLING 1+; EOSINOPHIL ABS CT 0; LYMPHOCYTES 12.4 % (15.0-45.0); MICROCYTOSIS 1+; MONOCYTES 2.6 % (0-9.0); MYELOCYTES 2.7 %; PLAT.SUFFICIENCY DECREASED; POIKILOCYTOSIS 1+; SEG.NEUTROPHILS 78.8 % (46.0-76.0); SPHEROCYTES 1+; TEAR DROP CELLS 1+
[2017-09-27 07:57] LABS: ALBUMIN 3.3 G/DL (3.2-4.8); CHLORIDE 101 MEQ/L (99-109); CREATININE 2.2 MG/DL (0.6-1.3); GFR ESTIMATE (CALCULATED) 32 mL/min/ (58.99-99999); GLUCOSE 83 mg/dL (70-99); PHOSPHORUS 6.8 mg/dL (2.5-4.9); POTASSIUM 5.5 MEQ/L (3.7-5.4); SODIUM 145 MEQ/L (136-147)
[2017-09-27 07:59] LABS: MAGNESIUM 2.7 mg/dl (1.3-2.7); UREA NITROGEN (BUN) 168 mg/dL (9-23)
[2017-09-27 14:06] LABS: BASE EXCESS 3.8 mEq/L (-3 to +3); BICARBONATE 28.5 mEq/L (22-26); CARBOXY HGB 2.6 % (0-5); METHEMOGLOBIN 1.3 % (0-1.5); pH 7.43 (7.35-7.45)
[2017-09-27 14:07] LABS: COMMENTS - BLOOD GASES A+C+; DEVICE VENT; FI02 50 %; MECHANICAL RATE 12 resp/min; MODE AC; PCO2 43 mm Hg (35-45); PEEP 8 CM/H20; PO2 199 mm Hg (80-100); SITE RR; TIDAL VOLUME 450 ML; TOTAL RESP RATE 12 resp/min
[2017-09-28] VITALS (23 sets, daily range): BP systolic 91–122; BP diastolic 43–74
[2017-09-28 06:32] LABS: HEMATOCRIT 23.8 % (38.0-50.0); HEMOGLOBIN 8.1 G/DL (12.5-16.6); MCH 32.8 PG (29.0-34.0); NRBC (%) 5.3 /100 WBC (0-0); PLATELET COUNT 61 K/uL (156-360); RBC DIS.WIDTH-CV 19.8 % (11.8-14.6); RBC DIS.WIDTH-SD 69.6 % (39-53); RED BLOOD COUNT 2.47 M/uL (4.00-5.50); WHITE BLOOD COUNT 2.3 K/uL (4.1-10.2)
[2017-09-28 06:34] LABS: MCV 96.4 FL (86-99)
[2017-09-28 07:00] LABS: ABS NEUTROPHIL COUNT 1.9; ANISOCYTOSIS 1+; ATYPICAL LYMPHOCYTE 1.1 %; EOSINOPHIL ABS CT 0; LYMPHOCYTES 10.1 % (15.0-45.0); METAMYELOCYTES 4.5 %; MICROCYTOSIS 1+; MONOCYTES 1.1 % (0-9.0); NUCLEATED RBC'S 15.7; PLAT.SUFFICIENCY DECREASED; POIKILOCYTOSIS 1+; SEG.NEUTROPHILS 74.2 % (46.0-76.0); TEAR DROP CELLS 1+
[2017-09-28 07:06] LABS: ALBUMIN 3.7 G/DL (3.2-4.8); ALKALINE PHOSPHATASE 58 IU/L (3-129); ALT (GPT) 34 IU/L (3-49); AST (GOT) 15 IU/L (2-34); CHLORIDE 101 MEQ/L (99-109); CREATININE 2.3 MG/DL (0.6-1.3); GFR ESTIMATE (CALCULATED) 30 mL/min/ (58.99-99999); POTASSIUM 4.6 MEQ/L (3.7-5.4); SODIUM 146 MEQ/L (136-147); TOTAL BILIRUBIN 1.9 MG/DL (0.0-1.0); TOTAL PROTEIN 4.8 G/DL (6.4-8.3)
[2017-09-28 07:09] LABS: GLUCOSE 142 mg/dL (70-99); UREA NITROGEN (BUN) 167 mg/dL (9-23)
[2017-09-29] VITALS (34 sets, daily range): BP systolic 85–148; BP diastolic 45–90
[2017-09-29 06:01] LABS: HEMATOCRIT 21.7 % (38.0-50.0); HEMOGLOBIN 7.4 G/DL (12.5-16.6); MCH 33.5 PG (29.0-34.0); MCHC 34.1 G/DL (30.0-36.0); MCV 98.2 FL (86-99); NRBC (%) 1.8 /100 WBC (0-0); RBC DIS.WIDTH-CV 19.9 % (11.8-14.6); RBC DIS.WIDTH-SD 70.5 % (39-53); RED BLOOD COUNT 2.21 M/uL (4.00-5.50); WHITE BLOOD COUNT 2.7 K/uL (4.1-10.2)
[2017-09-29 06:19] LABS: ALBUMIN 3.8 G/DL (3.2-4.8); ALKALINE PHOSPHATASE 49 IU/L (3-129); ALT (GPT) 25 IU/L (3-49); AST (GOT) 13 IU/L (2-34); CHLORIDE 104 MEQ/L (99-109); CREATININE 2.1 MG/DL (0.6-1.3); GFR ESTIMATE (CALCULATED) 34 mL/min/ (58.99-99999); GLUCOSE 144 mg/dL (70-99); POTASSIUM 3.7 MEQ/L (3.7-5.4); SODIUM 146 MEQ/L (136-147); TOTAL BILIRUBIN 1.8 MG/DL (0.0-1.0); TOTAL PROTEIN 4.9 G/DL (6.4-8.3)
[2017-09-29 06:29] LABS: UREA NITROGEN (BUN) 160 mg/dL (9-23)
[2017-09-29 07:06] LABS: ABS NEUTROPHIL COUNT 2.4; ANISOCYTOSIS 1+; EOSINOPHIL ABS CT 0; HYPOCHROMASIA 1+; IMM.PLATELET FRACTION 3.6 (1-7); MACROCYTES 1+; PLAT.SUFFICIENCY DECREASED; PLATELET COUNT 45 K/uL (156-360); POIKILOCYTOSIS 1+; POLYCHROMASIA 1+; TEAR DROP CELLS 1+; TOXIC GRANULATION 1+
[2017-09-30] VITALS (25 sets, daily range): BP systolic 67–114; BP diastolic 42–68
[2017-09-30 05:53] LABS: HEMATOCRIT 27.4 % (38.0-50.0); MCH 30.4 PG (29.0-34.0); MCHC 32.8 G/DL (30.0-36.0); NRBC (%) 2.9 /100 WBC (0-0); RBC DIS.WIDTH-SD 75.2 % (39-53); WHITE BLOOD COUNT 2.4 K/uL (4.1-10.2)
[2017-09-30 05:54] LABS: MCV 92.6 FL (86-99); RED BLOOD COUNT 2.96 M/uL (4.00-5.50)
[2017-09-30 06:15] LABS: CHLORIDE 106 MEQ/L (99-109); CREATININE 2.1 MG/DL (0.6-1.3); GFR ESTIMATE (CALCULATED) 34 mL/min/ (58.99-99999); MAGNESIUM 2.5 mg/dl (1.3-2.7); POTASSIUM 3.8 MEQ/L (3.7-5.4); SODIUM 144 MEQ/L (136-147)
[2017-09-30 06:16] LABS: GLUCOSE 284 mg/dL (70-99)
[2017-09-30 06:17] LABS: PHOSPHORUS 3.7 mg/dL (2.5-4.9)
[2017-09-30 06:27] LABS: ANISOCYTOSIS 2+; BAND NEUTROPHILS 6.9 % (0-8.0); BASOPHILS 1.4 %; EOSINOPHIL ABS CT 0; HYPOCHROMASIA 1+; IMM.PLATELET FRACTION 3.8 (1-7); LYMPHOCYTES 2.8 % (15.0-45.0); METAMYELOCYTES 1.4 %; MICROCYTOSIS 2+; MONOCYTES 6.9 % (0-9.0); MYELOCYTES 2.8 %; NUCLEATED RBC'S 9.7; OVALOCYTES 1+; PLAT.SUFFICIENCY DECREASED; PLATELET COUNT 38 K/uL (156-360); POIKILOCYTOSIS 1+; POLYCHROMASIA 1+; SEG.NEUTROPHILS 77.8 % (46.0-76.0)
[2017-09-30 08:59] LABS: UREA NITROGEN (BUN) 169 mg/dL (9-23)
[2017-10-01] VITALS (23 sets, daily range): BP systolic 83–112; BP diastolic 39–66
[2017-10-01 05:38] LABS: FIBRINOGEN 311 mg/dL (150-450); INTER. NORMALIZED RATIO 1.3
[2017-10-01 05:40] LABS: PTT 32.1 SEC (25-37)
[2017-10-01 05:58] LABS: CHLORIDE 105 MEQ/L (99-109); CREATININE 2.4 MG/DL (0.6-1.3); GFR ESTIMATE (CALCULATED) 29 mL/min/ (58.99-99999); GLUCOSE 222 mg/dL (70-99); POTASSIUM 3.4 MEQ/L (3.7-5.4); SODIUM 145 MEQ/L (136-147)
[2017-10-01 06:16] LABS: HEMATOCRIT 26.9 % (38.0-50.0); HEMOGLOBIN 8.8 G/DL (12.5-16.6); MCH 30.6 PG (29.0-34.0); MCHC 32.7 G/DL (30.0-36.0); MCV 93.4 FL (86-99); NRBC (%) 1.9 /100 WBC (0-0); RBC DIS.WIDTH-CV 22.4 % (11.8-14.6); RBC DIS.WIDTH-SD 74.7 % (39-53); RED BLOOD COUNT 2.88 M/uL (4.00-5.50); WHITE BLOOD COUNT 2.6 K/uL (4.1-10.2)
[2017-10-01 06:27] LABS: ALBUMIN 3.2 G/DL (3.2-4.8); ALKALINE PHOSPHATASE 51 IU/L (3-129); ALT (GPT) 23 IU/L (3-49); AST (GOT) 11 IU/L (2-34); CHLORIDE 106 MEQ/L (99-109); CREATININE 2.4 MG/DL (0.6-1.3); GFR ESTIMATE (CALCULATED) 29 mL/min/ (58.99-99999); GLUCOSE 219 mg/dL (70-99); POTASSIUM 3.4 MEQ/L (3.7-5.4); SODIUM 147 MEQ/L (136-147); TOTAL PROTEIN 4.4 G/DL (6.4-8.3)
[2017-10-01 06:29] LABS: UREA NITROGEN (BUN) 193 mg/dL (9-23)
[2017-10-01 06:31] LABS: TOTAL BILIRUBIN 0.9 MG/DL (0.0-1.0); UREA NITROGEN (BUN) 193 mg/dL (9-23)
[2017-10-01 09:13] LABS: ABS NEUTROPHIL COUNT 2.3; ANISOCYTOSIS 2+; BURR CELLS 1+; EOSINOPHIL ABS CT 0; IMM.PLATELET FRACTION 6.9 (1-7); LYMPHOCYTES 3.1 % (15.0-45.0); MICROCYTOSIS 2+; MONOCYTES 6.2 % (0-9.0); OVALOCYTES 1+; PLAT.SUFFICIENCY VERY DECREASED; PLATELET COUNT 34 K/uL (156-360); POIKILOCYTOSIS 1+; SEG.NEUTROPHILS 88.7 % (46.0-76.0); SMUDGE CELLS 3.1; TEAR DROP CELLS 1+
[2017-10-02] VITALS (14 sets, daily range): BP systolic 83–125; BP diastolic 8–93
[2017-10-02 05:44] LABS: CHLORIDE 105 mEq/L (99-109); SODIUM 143 mEq/L (136-147)
[2017-10-02 05:50] LABS: CREATININE 2.4 mg/dL (0.6-1.3); GFR ESTIMATE (CALCULATED) 29 mL/min/ (58.99-99999)
[2017-10-02 06:03] LABS: GLUCOSE 119 mg/dL (70-99)
[2017-10-02 06:04] LABS: UREA NITROGEN (BUN) 184 mg/dL (9-23)
[2017-10-02 06:07] LABS: HEMATOCRIT 25.6 % (38.0-50.0); HEMOGLOBIN 8.7 G/DL (12.5-16.6); MCH 31.6 PG (29.0-34.0); MCV 93.1 FL (86-99); NRBC (%) 1.4 /100 WBC (0-0); RBC DIS.WIDTH-SD 73.3 % (39-53); RED BLOOD COUNT 2.75 M/uL (4.00-5.50); WHITE BLOOD COUNT 2.2 K/uL (4.1-10.2)
[2017-10-02 07:02] LABS: ABS NEUTROPHIL COUNT 1.9; ANISOCYTOSIS 2+; BURR CELLS 1+; EOSINOPHIL ABS CT 0; IMM.PLATELET FRACTION 8.3 (1-7); LYMPHOCYTES 6.2 % (15.0-45.0); MICROCYTOSIS 2+; MONOCYTES 3.5 % (0-9.0); MYELOCYTES 2.7 %; NUCLEATED RBC'S 1.8; OVALOCYTES 1+; PLAT.SUFFICIENCY DECREASED; PLATELET COUNT 30 K/uL (156-360); POIKILOCYTOSIS 1+; SEG.NEUTROPHILS 87.6 % (46.0-76.0); SMUDGE CELLS 2.7; TOXIC GRANULATION 2+
[2017-10-03] VITALS (23 sets, daily range): BP systolic 69–112; BP diastolic 45–90
[2017-10-03 05:58] LABS: HEMATOCRIT 25.3 % (38.0-50.0); HEMOGLOBIN 8.2 G/DL (12.5-16.6); MCH 30.5 PG (29.0-34.0); MCHC 32.4 G/DL (30.0-36.0); MCV 94.1 FL (86-99); RBC DIS.WIDTH-CV 21.8 % (11.8-14.6); RED BLOOD COUNT 2.69 M/uL (4.00-5.50)
[2017-10-03 06:38] LABS: ABS NEUTROPHIL COUNT 3.9; ANISOCYTOSIS 2+; BAND NEUTROPHILS 12.4 % (0-8.0); EOSINOPHIL ABS CT 0; IMM.PLATELET FRACTION 5.3 (1-7); LYMPHOCYTES 0.9 % (15.0-45.0); MICROCYTOSIS 2+; MYELOCYTES 0.9 %; OVALOCYTES 1+; PLAT.SUFFICIENCY VERY DECREASED; PLATELET COUNT 39 K/uL (156-360); POIKILOCYTOSIS 1+; SEG.NEUTROPHILS 84.8 % (46.0-76.0); SPHEROCYTES 1+; TEAR DROP CELLS 1+
[2017-10-03 06:39] LABS: CHLORIDE 102 MEQ/L (99-109); CREATININE 2.6 MG/DL (0.6-1.3); GFR ESTIMATE (CALCULATED) 26 mL/min/ (58.99-99999); POTASSIUM 3.4 MEQ/L (3.7-5.4); SODIUM 140 MEQ/L (136-147)
[2017-10-03 06:58] LABS: GLUCOSE 211 mg/dL (70-99); UREA NITROGEN (BUN) 207 mg/dL (9-23)
[2017-10-03 12:20] LABS: CLINICAL INFORMATION NOT PROVIDED; NUMBER OF MARKERS 22; SPECIMEN TYPE BONE MARROW; SPECIMEN VIABILITY 94
[2017-10-04] VITALS (30 sets, daily range): BP systolic 68–131; BP diastolic 42–87
[2017-10-04 05:54] LABS: HEMATOCRIT 26.3 % (38.0-50.0); HEMOGLOBIN 8.5 G/DL (12.5-16.6); MCH 29.9 PG (29.0-34.0); MCHC 32.3 G/DL (30.0-36.0); MCV 92.6 FL (86-99); NRBC (%) 1.1 /100 WBC (0-0); RBC DIS.WIDTH-CV 21.7 % (11.8-14.6); RBC DIS.WIDTH-SD 72.4 % (39-53); RED BLOOD COUNT 2.84 M/uL (4.00-5.50); WHITE BLOOD COUNT 4.7 K/uL (4.1-10.2)
[2017-10-04 05:55] LABS: ALBUMIN 2.8 G/DL (3.2-4.8); ALKALINE PHOSPHATASE 60 IU/L (3-129); ALT (GPT) 8 IU/L (3-49); AST (GOT) 15 IU/L (2-34); CHLORIDE 102 MEQ/L (99-109); CREATININE 2.7 MG/DL (0.6-1.3); GFR ESTIMATE (CALCULATED) 25 mL/min/ (58.99-99999); MAGNESIUM 2.3 mg/dl (1.3-2.7); SODIUM 141 MEQ/L (136-147); TOTAL PROTEIN 4.2 G/DL (6.4-8.3)
[2017-10-04 05:56] LABS: PHOSPHORUS 5.9 mg/dL (2.5-4.9); POTASSIUM 4.3 MEQ/L (3.7-5.4); TOTAL BILIRUBIN 0.7 MG/DL (0.0-1.0)
[2017-10-04 06:47] LABS: GLUCOSE 54 mg/dL (70-99); UREA NITROGEN (BUN) 201 mg/dL (9-23)
[2017-10-04 06:52] LABS: ABS NEUTROPHIL COUNT 4.4; ANISOCYTOSIS 2+; BAND NEUTROPHILS 8.9 % (0-8.0); EOSINOPHIL ABS CT 0; IMM.PLATELET FRACTION 5.9 (1-7); LYMPHOCYTES 0.9 % (15.0-45.0); MACROCYTES 1+; MICROCYTOSIS 2+; MONOCYTES 5.4 % (0-9.0); NUCLEATED RBC'S 0.9; PLAT.SUFFICIENCY VERY DECREASED; PLATELET COUNT 47 K/uL (156-360); SEG.NEUTROPHILS 84.8 % (46.0-76.0); TEAR DROP CELLS 1+; TOXIC GRANULATION 2+
[2017-10-04 18:54] LABS: BASE EXCESS -9.6 mEq/L (-3 to +3); BICARBONATE 17.2 mEq/L (22-26); CARBOXY HGB 2.6 % (0-5); COMMENTS - BLOOD GASES A+C+; DEVICE VENT; FI02 30 %; MECHANICAL RATE 16 resp/min; METHEMOGLOBIN 1.5 % (0-1.5); MODE A/C; PCO2 41 mm Hg (35-45); PEEP 5 CM/H20; PO2 83 mm Hg (80-100); SITE LR; TIDAL VOLUME 400 ML; TOTAL RESP RATE 23 resp/min; pH 7.23 (7.35-7.45)
[2017-10-04 19:34] LABS: HEMATOCRIT 22.8 % (38.0-50.0); HEMOGLOBIN 7.4 G/DL (12.5-16.6); MCH 30.5 PG (29.0-34.0); MCHC 32.5 G/DL (30.0-36.0); MCV 93.8 FL (86-99); NRBC (%) 0.6 /100 WBC (0-0); RBC DIS.WIDTH-CV 22.2 % (11.8-14.6); RED BLOOD COUNT 2.43 M/uL (4.00-5.50); WHITE BLOOD COUNT 6.2 K/uL (4.1-10.2)
[2017-10-04 20:06] LABS: CHLORIDE 102 MEQ/L (99-109); CREATININE 2.7 MG/DL (0.6-1.3); GFR ESTIMATE (CALCULATED) 25 mL/min/ (58.99-99999); MAGNESIUM 2.2 mg/dl (1.3-2.7); PHOSPHORUS 6.4 mg/dL (2.5-4.9); POTASSIUM 4.5 MEQ/L (3.7-5.4); SODIUM 136 MEQ/L (136-147)
[2017-10-04 20:07] LABS: GLUCOSE 125 mg/dL (70-99); UREA NITROGEN (BUN) 184 mg/dL (9-23)
[2017-10-04 20:17] LABS: ABS NEUTROPHIL COUNT 6.1; ANISOCYTOSIS 3+; BAND NEUTROPHILS 10.6 % (0-8.0); EOSINOPHIL ABS CT 0; HYPOCHROMASIA 3+; IMM.PLATELET FRACTION 4.6 (1-7); LYMPHOCYTES 0.9 % (15.0-45.0); MACROCYTES 1+; MICROCYTOSIS 1+; MONOCYTES 0.9 % (0-9.0); NUCLEATED RBC'S 0.9; PLAT.SUFFICIENCY DECREASED; PLATELET COUNT 47 K/uL (156-360); POIKILOCYTOSIS 1+; SEG.NEUTROPHILS 87.6 % (46.0-76.0); TEAR DROP CELLS 1+
[2017-10-05] VITALS (23 sets, daily range): BP systolic 81–125; BP diastolic 46–69
[2017-10-05 06:02] LABS: ALBUMIN 2.8 G/DL (3.2-4.8); ALKALINE PHOSPHATASE 41 IU/L (3-129); ALT (GPT) 4 IU/L (3-49); AST (GOT) 11 IU/L (2-34); CHLORIDE 101 MEQ/L (99-109); CREATININE 2.6 MG/DL (0.6-1.3); GFR ESTIMATE (CALCULATED) 26 mL/min/ (58.99-99999); MAGNESIUM 2.1 mg/dl (1.3-2.7); POTASSIUM 3.9 MEQ/L (3.7-5.4); SODIUM 137 MEQ/L (136-147); TOTAL BILIRUBIN 0.7 MG/DL (0.0-1.0); TOTAL PROTEIN 3.8 G/DL (6.4-8.3)
[2017-10-05 06:06] LABS: GLUCOSE 218 mg/dL (70-99); UREA NITROGEN (BUN) 171 mg/dL (9-23)
[2017-10-05 06:10] LABS: HEMATOCRIT 19.2 % (38.0-50.0); MCH 30.7 PG (29.0-34.0); MCHC 31.8 G/DL (30.0-36.0); MCV 96.5 FL (86-99); NRBC (%) 0.6 /100 WBC (0-0); RBC DIS.WIDTH-CV 22.4 % (11.8-14.6); RBC DIS.WIDTH-SD 77.3 % (39-53); RED BLOOD COUNT 1.99 M/uL (4.00-5.50); WHITE BLOOD COUNT 4.9 K/uL (4.1-10.2)
[2017-10-05 06:22] LABS: ABS NEUTROPHIL COUNT 4.7; ANISOCYTOSIS 2+; BAND NEUTROPHILS 0.9 % (0-8.0); BURR CELLS 2+; EOSINOPHIL ABS CT 0; GIANT PLATELETS 1+; IMM.PLATELET FRACTION 4.9 (1-7); LYMPHOCYTES 2.7 % (15.0-45.0); MICROCYTOSIS 2+; MONOCYTES 0.9 % (0-9.0); OVALOCYTES 1+; PLAT.SUFFICIENCY VERY DECREASED; PLATELET COUNT 41 K/uL (156-360); POIKILOCYTOSIS 1+; SEG.NEUTROPHILS 95.5 % (46.0-76.0); TEAR DROP CELLS 1+; TOX.VACUOLIZATION 1+; TOXIC GRANULATION 3+
[2017-10-05 06:26] LABS: HEMOGLOBIN 6.1 G/DL (12.5-16.6)
[2017-10-05 12:08] LABS: BASE EXCESS -13.6 mEq/L (-3 to +3); BICARBONATE 14.3 mEq/L (22-26); CARBOXY HGB 2.8 % (0-5); METHEMOGLOBIN 1.9 % (0-1.5); PCO2 42 mm Hg (35-45); PO2 80 mm Hg (80-100)
[2017-10-05 12:10] LABS: DEVICE VENT; FI02 40 %; MECHANICAL RATE 16 resp/min; MODE AC; PEEP 5 CM/H20; SITE RR; TIDAL VOLUME 400 ML; TOTAL RESP RATE 20 resp/min; pH 7.14 (7.35-7.45)
[2017-10-05 13:31] LABS: CHLORIDE 106 MEQ/L (99-109); CREATININE 2.7 MG/DL (0.6-1.3); GFR ESTIMATE (CALCULATED) 25 mL/min/ (58.99-99999); GLUCOSE 118 mg/dL (70-99); POTASSIUM 4.2 MEQ/L (3.7-5.4); SODIUM 141 MEQ/L (136-147); UREA NITROGEN (BUN) 201 mg/dL (9-23)
[2017-10-06 00:02] VITALS: BP 84/33
[2017-10-06 02:02] VITALS: BP 66/36
[2017-10-06 04:02] VITALS: BP 59/27
[2017-10-06 06:02] VITALS: BP 55/36
== END 2017-10-06 08:28 | DRG 4 ==
LOC: EME 18:02 → CANRESERV 21:06 → ENRESERV 21:06 → EDOF 21:10 → 4EAST 21:10 → 5EAST 21:10 → ENRESERV 21:10 → 2EAST 21:10 → 4WEST 21:10 → ENRESERV 21:37 → 4EAST 22:16 → ENRESERV 09-04 14:39 → 4WEST 09-04 14:52 → ENRESERV 09-08 10:04 → CANRESERV 09-08 14:39 → ENRESERV 09-08 15:33 → 2EAST 09-08 17:36 → ENRESERV 09-12 11:23 → 4EAST 09-12 16:44 → ENRESERV 09-15 01:16 → 4WEST 09-15 01:20 → ENRESERV 09-21 16:22 → 4WEST 09-21 18:24 → 4EAST 09-21 18:37 → ENRESERV 09-26 14:25 → 4WEST 09-26 16:38 → ENRESERV 10-06 00:49 → 5EAST 10-06 07:40
PROVIDERS: Anesthesiology; Emergency Medicine; Family Medicine; Hospitalist; Internal Medicine; Internal Medicine Critical Care Medicine; Internal Medicine Nephrology; Internal Medicine Pulmonary Disease; Specialist
PROC: 02HV33Z Insertion of Infusion Device into Superior Vena Cava, Percutaneous Approach (ICD-10-PCS; principal; 2017-09-05)
PROC: 0B9J8ZX Drainage of Left Lower Lung Lobe, Via Natural or Artificial Opening Endoscopic, Diagnostic (ICD-10-PCS; 2017-09-06)
PROC: 0BJ08ZZ Inspection of Tracheobronchial Tree, Via Natural or Artificial Opening Endoscopic (ICD-10-PCS; 2017-09-06)
PROC: 5A1945Z Respiratory Ventilation, 24-96 Consecutive Hours (ICD-10-PCS; 2017-09-06)
PROC: 0BH17EZ Insertion of Endotracheal Airway into Trachea, Via Natural or Artificial Opening (ICD-10-PCS; 2017-09-06)
PROC: 30233N1 Transfusion of Nonautologous Red Blood Cells into Peripheral Vein, Percutaneous Approach (ICD-10-PCS; 2017-09-12)
PROC: 0W993ZZ Drainage of Right Pleural Cavity, Percutaneous Approach (ICD-10-PCS; 2017-09-13)
PROC: 5A1945Z Respiratory Ventilation, 24-96 Consecutive Hours (ICD-10-PCS; 2017-09-15)
PROC: 0BH17EZ Insertion of Endotracheal Airway into Trachea, Via Natural or Artificial Opening (ICD-10-PCS; 2017-09-15)
PROC: 5A09357 Assistance with Respiratory Ventilation, Less than 24 Consecutive Hours, Continuous Positive Airway Pressure (ICD-10-PCS; 2017-09-25)
PROC: 0BH17EZ Insertion of Endotracheal Airway into Trachea, Via Natural or Artificial Opening (ICD-10-PCS; 2017-09-27)
PROC: 5A1955Z Respiratory Ventilation, Greater than 96 Consecutive Hours (ICD-10-PCS; 2017-09-27)
PROC: 07DR3ZX Extraction of Iliac Bone Marrow, Percutaneous Approach, Diagnostic (ICD-10-PCS; 2017-09-30)
PROC: 0DH63UZ Insertion of Feeding Device into Stomach, Percutaneous Approach (ICD-10-PCS; 2017-10-01)
PROC: 0B110F4 Bypass Trachea to Cutaneous with Tracheostomy Device, Open Approach (ICD-10-PCS; 2017-10-01)
PROC: 5A1955Z Respiratory Ventilation, Greater than 96 Consecutive Hours (ICD-10-PCS; 2017-10-01)
DX: J18.9 Pneumonia, unspecified organism (principal); J96.21 Acute and chronic respiratory failure with hypoxia; J96.22 Acute and chronic respiratory failure with hypercapnia; A41.9 Sepsis, unspecified organism; R65.21 Severe sepsis with septic shock; N17.9 Acute kidney failure, unspecified; I12.9 Hypertensive chronic kidney disease with stage 1 through stage 4 chronic kidney disease, or unspecified chronic kidney disease; N18.3 Chronic kidney disease, stage 3 (moderate); Y95 Nosocomial condition; Z51.5 Encounter for palliative care; K25.2 Acute gastric ulcer with both hemorrhage and perforation; J98.2 Interstitial emphysema; K66.8 Other specified disorders of peritoneum; D61.818 Other pancytopenia; E87.0 Hyperosmolality and hypernatremia; E87.6 Hypokalemia; G93.40 Encephalopathy, unspecified; R13.10 Dysphagia, unspecified; I27.20 Pulmonary hypertension, unspecified; I48.0 Paroxysmal atrial fibrillation; I48.1 Persistent atrial fibrillation; I48.2 Chronic atrial fibrillation; J44.1 Chronic obstructive pulmonary disease with (acute) exacerbation; N05.8 Unspecified nephritic syndrome with other morphologic changes; J86.9 Pyothorax without fistula; J90 Pleural effusion, not elsewhere classified; K12.1 Other forms of stomatitis; E87.2 Acidosis; I08.0 Rheumatic disorders of both mitral and aortic valves; E87.70 Fluid overload, unspecified; D63.1 Anemia in chronic kidney disease; Z99.11 Dependence on respirator [ventilator] status; E11.22 Type 2 diabetes mellitus with diabetic chronic kidney disease; E11.42 Type 2 diabetes mellitus with diabetic polyneuropathy; E11.65 Type 2 diabetes mellitus with hyperglycemia; E66.9 Obesity, unspecified; E78.5 Hyperlipidemia, unspecified; F43.22 Adjustment disorder with anxiety; G82.20 Paraplegia, unspecified; H53.2 Diplopia; I25.810 Atherosclerosis of coronary artery bypass graft(s) without angina pectoris; I77.6 Arteritis, unspecified; K59.03 Drug induced constipation; T40.2X5A Adverse effect of other opioids, initial encounter; M06.9 Rheumatoid arthritis, unspecified; E46 Unspecified protein-calorie malnutrition; R26.2 Difficulty in walking, not elsewhere classified; R33.9 Retention of urine, unspecified; R60.0 Localized edema; G89.29 Other chronic pain; M54.2 Cervicalgia; M54.5 Low back pain; M25.559 Pain in unspecified hip; E66.01 Morbid (severe) obesity due to excess calories; Z68.41 Body mass index [BMI] 40.0-44.9, adult; Z79.52 Long term (current) use of systemic steroids; Z95.1 Presence of aortocoronary bypass graft; Z87.01 Personal history of pneumonia (recurrent); Z83.3 Family history of diabetes mellitus; Z82.3 Family history of stroke; Z87.891 Personal history of nicotine dependence
CPT/HCPCS: 31500; 31720; 36600; 71045; 71046; 71250; 74176; 76942; 77012; 80048; 80048 91; 80053; 80069; 80076; 80162; 80202; 82272; 82803; 82948; 83605; 83615 91; 83735; 83880; 84100; 84145 90; 84157; 84484; 84999; 85007; 85025; 85025 91; 85027; 85384; 85610; 85730; 86022 90; 86141; 86645 90; 86850; 86900; 86901; 86920; 87040; 87070; 87081; 87102; 87103; 87106; 87116; 87205; 87206; 87252 90; 87278; 87449; 87502; 87631; 87641; 88108; 88305; 88312; 93005; 93306; 93971; 94002; 94003; 94010; 94640; 94640 76; 94660; 94667; 94668; 94760; 94799; 97530 GO; 97530 GP; 99202; 99281; 99285; C1751; C9113; J0456; J0690; J0692; J0881; J1160; J1447; J1644; J1652; J1815; J1940; J1956; J2060; J2248; J2250; J2270; J2310; J2543; J2704; J2920; J2930; J3010; J3370; J3480; J7030; J7040; J7050; J7120; J7512; J7608; P9016; P9047; S0028; S0030